=== PATIENT | female | born 1985 | race American Indian/Alaskan Native ===

== ENCOUNTER 2021-06-04 08:13 | Inpatient (IN) | payer MEDICAID, OTHER ==
[2021-06-04] MEDS ORDERED: METOCLOPRAMIDE 10 MG/2 ML INJ IV ONE (08:53)
[2021-06-04] MEDS ORDERED: LACTATED RINGERS 1,000 ML IV ONE (08:53)
--- NOTE | 2021-06-04 08:54 | Emergency Department Report ---
ED General Adult HPI - General Chief complaint: Nausea/Vomiting/Diarrhea Stated complaint: SOB PUI?: No Time Seen by Provider: 06/04/21 08:18 Source: patient, EMS ( EMS documentation not available at time of chart dictati on ), RN notes reviewed Mode of arrival: Stretcher Limitations: No Limitations - History of Present Illness Initial comments: During the history and physical examination, I am chaperoned by nurse Swati Felix The patient is a 35-year-old female. She is not known to myself previously. She is brought to the hospital by emergency medical services with a complaint of weakness, nausea, and heavy breathing. The patient is a diabetic. She believes that she takes insulin. She complains of painless generalized weakness, heavy breathing, and nausea. The patient states that she is not . As per collateral information and report from EMS, the patient consumed quite a bit of alcohol over the weekend. The patient was also out in the extreme heat. The patient denies headache, neck pain, chest pain, abdominal pain. She denies travel, surgery, immobilization, DVT and pulmonary embolism risk factors. She does not recall all the medicines that she takes. She denies dysuria. -: Gradual, days(s) Consistency: constant Improves with: rest Worsens with: movement - Related Data Allergies Allergy/AdvReac Type Severity Reaction Status Date / Time No Known Allergies Allergy Unverified 06/04/21 08:17 ED Review of Systems ROS: Stated complaint: SOB Other details as noted in HPI Constitutional: malaise, weakness. denies: fever Eyes: denies: vision change ENT: denies: epistaxis Respiratory: shortness of breath Cardiovascular: denies: chest pain Gastrointestinal: nausea. denies: abdominal pain Genitourinary: denies: dysuria Neurological: weakness Hematological/Lymphatic: denies: easy bleeding ED Past Medical Hx - Past Medical History Previous Medical History?: Yes Hx Diabetes: Yes - Social History Smoking Status: Current Every Day Smoker ED Physical Exam - General Limitations: No Limitations General appearance: alert, anxious - Head Head exam: Present: atraumatic, normocephalic - Eye Eye exam: Present: normal appearance, EOMI. Absent: nystagmus - ENT ENT exam: Present: normal exam, mucous membranes dry, normal external ear exam - Neck Neck exam: Present: normal inspection, full ROM. Absent: tenderness, meningismus - Respiratory Respiratory exam: Present: normal lung sounds bilaterally, accessory muscle use. Absent: respiratory distress, wheezes, rales, rhonchi, stridor - Cardiovascular Cardiovascular Exam: Present: normal rhythm, tachycardia, normal heart sounds. Absent: bradycardia, irregular rhythm, systolic murmur, diastolic murmur, rubs, gallop - GI/Abdominal GI/Abdominal exam: Present: soft. Absent: distended, tenderness, guarding, rebound, rigid, pulsatile mass - Extremities Exam Extremities exam: Present: normal inspection, full ROM, other (2+ pulses noted in the bilateral upper and lower extremities. There is no palpable cord. negative Homans sign. Muscular compartments are soft. The pelvis is stable.). Absent: pedal edema, calf tenderness - Back Exam Back exam: Present: normal inspection, full ROM. Absent: tenderness, CVA tenderness (R), CVA tenderness (L), paraspinal tenderness, vertebral tenderness - Neurological Exam Neurological exam: Present: alert, oriented X3, other (No facial droop. Tongue midline. Extraocular movements intact bilaterally. Facial sensation intact to light touch in V1, V2, V3 distribution bilaterally. 5 and a 5 strength in 4 extremities. Sensation intact to light touch in 4 extremities.). Absent: motor sensory deficit - Psychiatric Psychiatric exam: Present: anxious - Skin Skin exam: Present: warm, dry, intact, normal color. Absent: rash ED Course Vital Signs 06/04/21 06/04/21 06/04/21 08:18 08:43 08:45 Temperature 97.7 F Pulse Rate 113 H Respiratory 16 Rate Blood Pressure Blood Pressure 149/94 [Right] O2 Sat by Pulse 92 92 Oximetry 06/04/21 06/04/21 06/04/21 09:00 09:15 09:31 Temperature Pulse Rate 113 H 111 H Respiratory 25 H 21 Rate Blood Pressure 124/82 124/82 Blood Pressure [Right] O2 Sat by Pulse 88 100 100 Oximetry 06/04/21 06/04/21 06/04/21 09:45 10:01 10:05 Temperature 97.7 F Pulse Rate 112 H 106 H 106 H Respiratory 21 22 22 Rate Blood Pressure 124/82 124/82 Blood Pressure 149/94 [Right] O2 Sat by Pulse 100 100 100 Oximetry 06/04/21 06/04/21 10:06 10:15 Temperature Pulse Rate 111 H Respiratory 22 21 Rate Blood Pressure 124/82 Blood Pressure [Right] O2 Sat by Pulse 100 Oximetry - Reevaluation(s) Reevaluation #1: 06/04/21 09:59 Differential diagnosis, including but not limited to: Dehydration, metabolic acidosis, hyperglycemia, diabetic ketoacidosis, hyperosmolar state, electrolyte derangement Assessment and plan: 35-year-old female, with a nonfocal neurologic examination, who is clinically sober at this time, with a complaint of malaise, weakness, shortness of breath, up-to-date with Covid vaccination status, who reportedly consumed quite a bit of alcohol this weekend, and was out in the hot sun. Place patient on cardiac monitor technician, obtain appropriate laboratory studies, EKG, start IV fluids, initiate supportive care, and reassess. Have also requested that nursing team reconcile home medications. Patient reports that she got her COVID-19 vaccination. Reevaluation #2: 06/04/21 11:42 Laboratory studies demonstrate evidence of hemoconcentration, dehydration, metabolic acidosis, hyperglycemia, bicarbonate of 4, anion gap of 39, pseudo hyperkalemia likely secondary to transcellular shift. Continue IV fluids. Start insulin therapy. Admit to the critical care unit. Hospital physician, Dr. Benson, to admit patient to the critical care unit. Have reached out to our critical care physician, awaiting callback. Have contacted the lab, requested expedient results for CBC. Reevaluation #3: 06/04/21 12:04 Dr. Benson to admit to the general medical service. Leukocytosis is likely a stress reaction. - Consultations Consultation #1: 06/04/21 11:45 Dr Westbrook of critical care to follow in consultation and agrees with plan of care ED Medical Decision Making - Lab Data Result diagrams: 06/04/21 10:29 06/04/21 10:29 Vital Signs 06/04/21 08:18 Temperature 97.7 F Pulse Rate 113 H Respiratory 16 Rate Blood Pressure 149/94 [Right] Lab Results 06/04/21 06/04/21 06/04/21 Range/Units 10:29 10:29 10:29 PT 14.9 (12.2-14.9) Sec. INR 1.12 (0.87-1.13) VBG pH (7.320-7.420) Sodium 132 L (137-145) mmol/L Potassium 5.7 H (3.6-5.0) mmol/L Chloride 94.3 L (98-107) mmol/L Carbon Dioxide 4 L* (22-30) mmol/L Anion Gap 39 mmol/L BUN 17 (7-17) mg/dL Creatinine 1.1 (0.6-1.2) mg/dL Estimated GFR > 60 ml/min BUN/Creatinine Ratio 15 % Glucose 410 H (65-100) mg/dL Calcium 10.1 (8.4-10.2) mg/dL Magnesium 2.50 H (1.7-2.3) mg/dL Total Bilirubin 0.40 (0.1-1.2) mg/dL AST 36 (5-40) units/L ALT 28 (7-56) units/L Alkaline Phosphatase 116 (35-129) units/L Total Creatine Kinase 788 H (30-135) units/L Total Protein 9.1 H (6.3-8.2) g/dL Albumin 5.2 H (3.9-5) g/dL Albumin/Globulin Ratio 1.3 % TSH 1.620 (0.270-4.200) mlU/mL HCG, Quant (0-4) mIU/mL Urine Color (Yellow) Urine Turbidity (Clear) Urine pH (5.0-7.0) Ur Specific [place] (1.003-1.030) Urine Protein (Negative) mg/dL Urine Glucose (UA) (Negative) mg/dL Urine Ketones (Negative) mg/dL Urine Blood (Negative) Urine Nitrite (Negative) Urine Bilirubin (Negative) Urine Urobilinogen (<2.0) mg/dL Ur Leukocyte Esterase (Negative) Urine WBC (Auto) (0.0-6.0) /HPF Urine RBC (Auto) (0.0-6.0) /HPF U Epithel Cells (Auto) (0-13.0) /HPF Urine Bacteria (Auto) (Negative) /HPF Urine Mucus /HPF Urine Opiates Screen Urine Methadone Screen Ur Barbiturates Screen Ur Phencyclidine Scrn Ur Amphetamines Screen U Benzodiazepines Scrn Urine Cocaine Screen U Marijuana (THC) Screen Drugs of Abuse Note Plasma/Serum Alcohol (0-0.07) % 06/04/21 06/04/21 06/04/21 Range/Units 10:29 10:29 10:29 PT (12.2-14.9) Sec. INR (0.87-1.13) VBG pH 6.955 L* (7.320-7.420) Sodium (137-145) mmol/L Potassium (3.6-5.0) mmol/L Chloride (98-107) mmol/L Carbon Dioxide (22-30) mmol/L Anion Gap mmol/L BUN (7-17) mg/dL Creatinine (0.6-1.2) mg/dL Estimated GFR ml/min BUN/Creatinine Ratio % Glucose (65-100) mg/dL Calcium (8.4-10.2) mg/dL Magnesium (1.7-2.3) mg/dL Total Bilirubin (0.1-1.2) mg/dL AST (5-40) units/L ALT (7-56) units/L Alkaline Phosphatase (35-129) units/L Total Creatine Kinase (30-135) units/L Total Protein (6.3-8.2) g/dL Albumin (3.9-5) g/dL Albumin/Globulin Ratio % TSH (0.270-4.200) mlU/mL HCG, Quant < 2 (0-4) mIU/mL Urine Color (Yellow) Urine Turbidity (Clear) Urine pH (5.0-7.0) Ur Specific [place] (1.003-1.030) Urine Protein (Negative) mg/dL Urine Glucose (UA) (Negative) mg/dL Urine Ketones (Negative) mg/dL Urine Blood (Negative) Urine Nitrite (Negative) Urine Bilirubin (Negative) Urine Urobilinogen (<2.0) mg/dL Ur Leukocyte Esterase (Negative) Urine WBC (Auto) (0.0-6.0) /HPF Urine RBC (Auto) (0.0-6.0) /HPF U Epithel Cells (Auto) (0-13.0) /HPF Urine Bacteria (Auto) (Negative) /HPF Urine Mucus /HPF Urine Opiates Screen Urine Methadone Screen Ur Barbiturates Screen Ur Phencyclidine Scrn Ur Amphetamines Screen U Benzodiazepines Scrn Urine Cocaine Screen U Marijuana (THC) Screen Drugs of Abuse Note Plasma/Serum Alcohol < 0.01 (0-0.07) % 06/04/21 06/04/21 Range/Units Unknown Unknown PT (12.2-14.9) Sec. INR (0.87-1.13) VBG pH (7.320-7.420) Sodium (137-145) mmol/L Potassium (3.6-5.0) mmol/L Chloride (98-107) mmol/L Carbon Dioxide (22-30) mmol/L Anion Gap mmol/L BUN (7-17) mg/dL Creatinine (0.6-1.2) mg/dL Estimated GFR ml/min BUN/Creatinine Ratio % Glucose (65-100) mg/dL Calcium (8.4-10.2) mg/dL Magnesium (1.7-2.3) mg/dL Total Bilirubin (0.1-1.2) mg/dL AST (5-40) units/L ALT (7-56) units/L Alkaline Phosphatase (35-129) units/L Total Creatine Kinase (30-135) units/L Total Protein (6.3-8.2) g/dL Albumin (3.9-5) g/dL Albumin/Globulin Ratio % TSH (0.270-4.200) mlU/mL HCG, Quant (0-4) mIU/mL Urine Color Straw (Yellow) Urine Turbidity Clear (Clear) Urine pH 5.0 (5.0-7.0) Ur Specific [place] 1.015 (1.003-1.030) Urine Protein 100 mg/dl (Negative) mg/dL Urine Glucose (UA) >=500 (Negative) mg/dL Urine Ketones 80 (Negative) mg/dL Urine Blood Mod (Negative) Urine Nitrite Neg (Negative) Urine Bilirubin Neg (Negative) Urine Urobilinogen < 2.0 (<2.0) mg/dL Ur Leukocyte Esterase Neg (Negative) Urine WBC (Auto) < 1.0 (0.0-6.0) /HPF Urine RBC (Auto) 1.0 (0.0-6.0) /HPF U Epithel Cells (Auto) 4.0 (0-13.0) /HPF Urine Bacteria (Auto) 1+ (Negative) /HPF Urine Mucus Few /HPF Urine Opiates Screen Negative Urine Methadone Screen Negative Ur Barbiturates Screen Negative Ur Phencyclidine Scrn Negative Ur Amphetamines Screen Negative U Benzodiazepines Scrn Negative Urine Cocaine Screen Negative U Marijuana (THC) Screen Negative Drugs of Abuse Note Disclamer Plasma/Serum Alcohol (0-0.07) % Lab Results 06/04/21 06/04/21 06/04/21 Range/Units 10:29 10:29 10:29 PT 14.9 (12.2-14.9) Sec. INR 1.12 (0.87-1.13) VBG pH (7.320-7.420) Sodium 132 L (137-145) mmol/L Potassium 5.7 H (3.6-5.0) mmol/L Chloride 94.3 L (98-107) mmol/L Carbon Dioxide 4 L* (22-30) mmol/L Anion Gap 39 mmol/L BUN 17 (7-17) mg/dL Creatinine 1.1 (0.6-1.2) mg/dL Estimated GFR > 60 ml/min BUN/Creatinine Ratio 15 % Glucose 410 H (65-100) mg/dL Calcium 10.1 (8.4-10.2) mg/dL Magnesium 2.50 H (1.7-2.3) mg/dL Total Bilirubin 0.40 (0.1-1.2) mg/dL AST 36 (5-40) units/L ALT 28 (7-56) units/L Alkaline Phosphatase 116 (35-129) units/L Total Creatine Kinase 788 H (30-135) units/L Total Protein 9.1 H (6.3-8.2) g/dL Albumin 5.2 H (3.9-5) g/dL Albumin/Globulin Ratio 1.3 % TSH 1.620 (0.270-4.200) mlU/mL HCG, Quant (0-4) mIU/mL Urine Color (Yellow) Urine Turbidity (Clear) Urine pH (5.0-7.0) Ur Specific [place] (1.003-1.030) Urine Protein (Negative) mg/dL Urine Glucose (UA) (Negative) mg/dL Urine Ketones (Negative) mg/dL Urine Blood (Negative) Urine Nitrite (Negative) Urine Bilirubin (Negative) Urine Urobilinogen (<2.0) mg/dL Ur Leukocyte Esterase (Negative) Urine WBC (Auto) (0.0-6.0) /HPF Urine RBC (Auto) (0.0-6.0) /HPF U Epithel Cells (Auto) (0-13.0) /HPF Urine Bacteria (Auto) (Negative) /HPF Urine Mucus /HPF Urine Opiates Screen Urine Methadone Screen Ur Barbiturates Screen Ur Phencyclidine Scrn Ur Amphetamines Screen U Benzodiazepines Scrn Urine Cocaine Screen U Marijuana (THC) Screen Drugs of Abuse Note Plasma/Serum Alcohol (0-0.07) % 06/04/21 06/04/21 06/04/21 Range/Units 10:29 10:29 10:29 PT (12.2-14.9) Sec. INR (0.87-1.13) VBG pH 6.955 L* (7.320-7.420) Sodium (137-145) mmol/L Potassium (3.6-5.0) mmol/L Chloride (98-107) mmol/L Carbon Dioxide (22-30) mmol/L Anion Gap mmol/L BUN (7-17) mg/dL Creatinine (0.6-1.2) mg/dL Estimated GFR ml/min BUN/Creatinine Ratio % Glucose (65-100) mg/dL Calcium (8.4-10.2) mg/dL Magnesium (1.7-2.3) mg/dL Total Bilirubin (0.1-1.2) mg/dL AST (5-40) units/L ALT (7-56) units/L Alkaline Phosphatase (35-129) units/L Total Creatine Kinase (30-135) units/L Total Protein (6.3-8.2) g/dL Albumin (3.9-5) g/dL Albumin/Globulin Ratio % TSH (0.270-4.200) mlU/mL HCG, Quant < 2 (0-4) mIU/mL Urine Color (Yellow) Urine Turbidity (Clear) Urine pH (5.0-7.0) Ur Specific [place] (1.003-1.030) Urine Protein (Negative) mg/dL Urine Glucose (UA) (Negative) mg/dL Urine Ketones (Negative) mg/dL Urine Blood (Negative) Urine Nitrite (Negative) Urine Bilirubin (Negative) Urine Urobilinogen (<2.0) mg/dL Ur Leukocyte Esterase (Negative) Urine WBC (Auto) (0.0-6.0) /HPF Urine RBC (Auto) (0.0-6.0) /HPF U Epithel Cells (Auto) (0-13.0) /HPF Urine Bacteria (Auto) (Negative) /HPF Urine Mucus /HPF Urine Opiates Screen Urine Methadone Screen Ur Barbiturates Screen Ur Phencyclidine Scrn Ur Amphetamines Screen U Benzodiazepines Scrn Urine Cocaine Screen U Marijuana (THC) Screen Drugs of Abuse Note Plasma/Serum Alcohol < 0.01 (0-0.07) % 06/04/21 06/04/21 Range/Units Unknown Unknown PT (12.2-14.9) Sec. INR (0.87-1.13) VBG pH (7.320-7.420) Sodium (137-145) mmol/L Potassium (3.6-5.0) mmol/L Chloride (98-107) mmol/L Carbon Dioxide (22-30) mmol/L Anion Gap mmol/L BUN (7-17) mg/dL Creatinine (0.6-1.2) mg/dL Estimated GFR ml/min BUN/Creatinine Ratio % Glucose (65-100) mg/dL Calcium (8.4-10.2) mg/dL Magnesium (1.7-2.3) mg/dL Total Bilirubin (0.1-1.2) mg/dL AST (5-40) units/L ALT (7-56) units/L Alkaline Phosphatase (35-129) units/L Total Creatine Kinase (30-135) units/L Total Protein (6.3-8.2) g/dL Albumin (3.9-5) g/dL Albumin/Globulin Ratio % TSH (0.270-4.200) mlU/mL HCG, Quant (0-4) mIU/mL Urine Color Straw (Yellow) Urine Turbidity Clear (Clear) Urine pH 5.0 (5.0-7.0) Ur Specific [place] 1.015 (1.003-1.030) Urine Protein 100 mg/dl (Negative) mg/dL Urine Glucose (UA) >=500 (Negative) mg/dL Urine Ketones 80 (Negative) mg/dL Urine Blood Mod (Negative) Urine Nitrite Neg (Negative) Urine Bilirubin Neg (Negative) Urine Urobilinogen < 2.0 (<2.0) mg/dL Ur Leukocyte Esterase Neg (Negative) Urine WBC (Auto) < 1.0 (0.0-6.0) /HPF Urine RBC (Auto) 1.0 (0.0-6.0) /HPF U Epithel Cells (Auto) 4.0 (0-13.0) /HPF Urine Bacteria (Auto) 1+ (Negative) /HPF Urine Mucus Few /HPF Urine Opiates Screen Negative Urine Methadone Screen Negative Ur Barbiturates Screen Negative Ur Phencyclidine Scrn Negative Ur Amphetamines Screen Negative U Benzodiazepines Scrn Negative Urine Cocaine Screen Negative U Marijuana (THC) Screen Negative Drugs of Abuse Note Disclamer Plasma/Serum Alcohol (0-0.07) % Vital Signs 06/04/21 06/04/21 06/04/21 08:18 08:43 08:45 Temperature 97.7 F Pulse Rate 113 H Respiratory 16 Rate Blood Pressure Blood Pressure 149/94 [Right] O2 Sat by Pulse 92 92 Oximetry 06/04/21 06/04/21 06/04/21 09:00 09:15 09:31 Temperature Pulse Rate 113 H 111 H Respiratory 25 H 21 Rate Blood Pressure 124/82 124/82 Blood Pressure [Right] O2 Sat by Pulse 88 100 100 Oximetry 06/04/21 06/04/21 06/04/21 09:45 10:01 10:05 Temperature 97.7 F Pulse Rate 112 H 106 H 106 H Respiratory 21 22 22 Rate Blood Pressure 124/82 124/82 Blood Pressure 149/94 [Right] O2 Sat by Pulse 100 100 100 Oximetry 06/04/21 06/04/21 10:06 10:15 Temperature Pulse Rate 111 H Respiratory 22 21 Rate Blood Pressure 124/82 Blood Pressure [Right] O2 Sat by Pulse 100 Oximetry - EKG Data -: EKG Interpreted by [facility] Rate: tachycardia - EKG Data When compared to previous EKG there are: previous EKG unavailable 06/04/21 09:57 EKG interpreted at 09: 40 Sinus rhythm, tachycardia, rate 108 bpm. Normal P wave axis. Left axis deviation. High left ventricular voltage. QTC prolonged, 463 ms. This is an abnormal EKG. This is not a STEMI. - Radiology Data Radiology results: pending, report reviewed, image reviewed CHEST 2 VIEWS INDICATION / CLINICAL INFORMATION: Dyspnoea. COMPARISON: None available. FINDINGS: SUPPORT DEVICES: None. HEART / MEDIASTINUM: No significant abnormality. LUNGS / PLEURA: No significant pulmonary or pleural abnormality. No pneumothorax. ADDITIONAL FINDINGS: No significant additional findings. IMPRESSION: 1. No acute findings. Signer Name: Tyrone Smith MD Signed: 06/04/2021 7:49 AM Workstation Name: [id number] Critical Care Time: Yes Critical care time in (mins) excluding proc time.: 35 Critical care attestation.: If time is entered above; I have spent that time in minutes in the direct care of this critically ill patient, excluding procedure time. ED Disposition Clinical Impression: Diabetic ketoacidosis, Dehydration, History of alcohol use Disposition: OP ADMIT IP TO THIS HOSP Is pt being admited?: Yes Does the pt Need Aspirin: No Condition: Serious Instructions: Diabetic Ketoacidosis (ED) Referrals: PRIMARY CARE, [Primary Care Provider] - 3-5 Days
[2021-06-04 09:45] LABS: Bacteria,Urine 1+ /HPF (Negative); Bilirubin,Urine NEG (Negative); Blood,Urine MOD (Negative); Color,Urine Straw (Yellow); Mucus,Urine FEW /HPF; Urobilinogen,Urine < 2.0 mg/dL (<2.0); WBC,Urine < 1.0 /HPF (0.0-6.0)
[2021-06-04 09:52] LABS: Amphetamine Screen,Urine Negative; Benzodiazepines Screen,Urine Negative; Cannabinoid Screen,Urine Negative; Cocaine Screen,Urine Negative; Methadone Screen,Urine Negative; Opiate Screen,Urine Negative
[2021-06-04 11:04] LABS: INR 1.12 (0.87-1.13)
[2021-06-04 11:18] LABS: Alanine Aminotransferase 28 units/L (7-56); Albumin 5.2 g/dL (3.9-5); BUN/Creatinine Ratio 15; Blood Urea Nitrogen 17 mg/dL (7-17); Calcium 10.1 mg/dL (8.4-10.2); Hemolysis Index 41
[2021-06-04] MEDS ORDERED: METOCLOPRAMIDE 10 MG/2 ML INJ ONE (11:23)
[2021-06-04] MEDS ORDERED: DEXTROSE 50% IN WATER (25GM) 50 ML SYRINGE IV PRN (11:40)
[2021-06-04 11:55] LABS: Red Blood Count 4.55 M/mm3 (3.65-5.03)
[2021-06-04 11:56] LABS: Basophils # (Auto) 0.3 K/mm3 (0.0-0.1); Basophils % (Auto) 1.3 % (0.0-1.8); Hematocrit 42.3 % (30.3-42.9); Hemoglobin 12.8 gm/dl (10.1-14.3); Lymphocytes # (Auto) 1.9 K/mm3 (1.2-5.4); Lymphocytes % (Auto) 8.5 % (13.4-35.0); Mean Corpuscular HGB Conc 30 % (30-34); Mean Corpuscular Volume 93 fl (79-97); Monocytes # (Auto) 0.5 K/mm3 (0.0-0.8); Platelet Count 203 K/mm3 (140-440); Red Cell Distribution Width 17.2 % (13.2-15.2)
[2021-06-04] MEDS ORDERED: D5W/0.45% NACL/KCL 20 MEQ 20 MEQ/1,000 ML BAG IV SCH (12:00)
[2021-06-04] MEDS: INSULIN REGULAR, HUMAN 100 UNITS in SODIUM CHLORIDE 0.9% 99 ML IV SCH (12:18)
[2021-06-04] MEDS ORDERED: SODIUM BICARB 8.4% 50 MEQ/50 ML SYRINGE IV SCH ×2 (12:42→16:42)
--- NOTE | 2021-06-04 12:42 | History and Physical Report ---
History of Present Illness Chief complaint: I feel sick History of present illness: 35 YO Female with DM, Nicotine Dependence, ETOH Dependence presents to ED for evaluation. Patient reports "I feel sick". Patient states that she has experienced generalized weakness, multiple episodes of nausea over the past 3 days with persistent symptoms over the same timeframe. Patient acknowledges alcohol ingestion over the weekend, as well as noncompliance with diabetic diet and insulin therapy. EMS was notified due to the aforementioned symptoms. Upon arrival the patient was found to be in distress and subsequently transported to [facility] for further care and evaluation of the aforementioned symptoms. The patient was seen and evaluated in the emergency department. All lab and imaging studies reviewed. The patient was found to have diabetic ketoacidosis, systemic inflammatory response syndrome, volume depletion, as well as alcohol dependence. The patient was admitted to ICU due to increased risk of worsening symptoms and initiated on DKA protocol as well as CIWA protocol. Critical care team consulted in the emergency department. Patient denies fever, chills, chest pain, palpitation, productive cough, skin rash, recent ill contacts, or known exposure to COVID-19. No prior admission for review. No medication listed at time of admission for reconciliation. Past History Past Medical History: diabetes Past Surgical History: No surgical history, Other (Reviewed) Social history: single, smoking, alcohol abuse Family history: diabetes, hypertension Medications and Allergies Allergies Allergy/AdvReac Type Severity Reaction Status Date / Time No Known Allergies Allergy Unverified 06/04/21 08:17 Active Meds: Active Medications Dextrose (Dextrose 50% In Water (25gm) 50 Ml Syringe) 0 ml IV Q30MIN PRN; Protocol PRN Reason: Hypoglycemia Insulin Human Regular 100 (units/ Sodium Chloride) 100 mls @ 1 mls/hr IV TITR LO; Protocol Last Admin: 06/04/21 12:18 Dose: 8 units/hr, 8 mls/hr Documented by: Potassium Chloride/Dextrose/Sod Cl (D5w/0.45% Nacl/Kcl 20 Meq) 20 meq in 1,000 mls @ 125 mls/hr IV DIRECT LO Sodium Chloride (Nacl 0.9% 1000 Ml) 1,000 mls @ 150 mls/hr IV DIRECT LO Sodium Chloride (Nacl 0.9% 1000 Ml) 3,000 mls @ 999 mls/hr IV BOLUS ONE Stop: 06/04/21 15:41 Sodium Bicarbonate (Sodium Bicarb 8.4% 50 Meq/50 Ml Syringe) 50 meq IV ONCE ONE Stop: 06/04/21 12:43 Sodium Chloride (Sodium Chloride 0.9% 10 Ml Flush Syringe) 10 ml IV PRN NR Stop: 06/05/21 11:59 Sodium Chloride (Sodium Chloride 0.9% 10 Ml Flush Syringe) 10 ml IV BID LO Sodium Chloride (Sodium Chloride 0.9% 10 Ml Flush Syringe) 10 ml IV PRN PRN PRN Reason: LINE FLUSH Review of Systems Constitutional: no weight loss, no weight gain, no fever, no chills Ears, nose, mouth and throat: no ear pain, no ear discharge, no tinnitis, no decreased hearing Breasts: no change in shape, no swelling, no mass Cardiovascular: no chest pain, no orthopnea, no palpitations, no rapid/irregular heart beat, no edema Respiratory: no cough, no excessive sputum Gastrointestinal: nausea, vomiting, no change in bowel habits, no hematemesis, no coffee ground emesis, no BRBPR, no melena, no hematochezia Genitourinary Female: no pelvic pain, no flank pain, no dysuria, no urinary frequency, no urgency Rectal: no pain, no incontinence, no bleeding Musculoskeletal: no neck stiffness, no neck pain, no arm numbness/tingling, no low back pain, no shooting leg pain Integumentary: no rash, no pruritis, no redness, no sores Neurological: no head injury, no transient paralysis, no weakness, no parathesias, no numbness, no tingling, no seizures, no syncope Psychiatric: no anxiety, no memory loss, no sleep disturbances, no insomnia, no change in appetite, no change in libido, no suicidal ideation Endocrine: no cold intolerance, no excessive thirst, no polyuria, no excessive sweating, no flushing Hematologic/Lymphatic: no easy bruising, no easy bleeding, no lymphadenopathy, no lymphedema Allergic/Immunologic: no allergic rhinitis, no wheezing, no persistent infections, no anaphylaxis Exam - Constitutional Vitals: Temp Pulse Resp BP Pulse Ox 97.7 F 111 H 21 124/82 100 06/04/21 10:05 06/04/21 10:15 06/04/21 10:15 06/04/21 10:15 06/04/21 10:15 General appearance: Present: mild distress - EENT Eyes: Present: PERRL ENT: hearing intact, clear oral mucosa - Neck Neck: Present: supple, normal ROM - Respiratory Respiratory effort: normal Respiratory: bilateral: CTA - Cardiovascular Heart Sounds: Present: S1 & S2. Absent: rub, click - Extremities Extremities: pulses symmetrical, No edema Peripheral Pulses: within normal limits - Abdominal General gastrointestinal: Present: soft, non-tender, non-distended, normal bowel sounds Female genitourinary: Present: normal - Integumentary Integumentary: Present: dry, clammy, decreased turgor - Musculoskeletal Musculoskeletal: gait normal, strength equal bilaterally - Psychiatric Psychiatric: appropriate mood/affect, intact judgment & insight - Neurologic Neurologic: CNII-XII intact, moves all extremities Results - Labs CBC & Chem 7: 06/04/21 10:29 06/04/21 10:29 Labs: Abnormal lab results 06/04/21 06/04/21 06/04/21 Range/Units 10:29 10:29 10:29 WBC 21.2 H (4.5-11.0) K/mm3 RDW 17.2 H (13.2-15.2) % Lymph % (Auto) 8.5 L (13.4-35.0) % Baso # (Auto) 0.3 H (0.0-0.1) K/mm3 Seg Neutrophils % 88.2 H (40.0-70.0) % Seg Neutrophils # 20.3 H (1.8-7.7) K/mm3 VBG pH 6.955 L* (7.320-7.420) Sodium 132 L (137-145) mmol/L Potassium 5.7 H (3.6-5.0) mmol/L Chloride 94.3 L (98-107) mmol/L Carbon Dioxide 4 L* (22-30) mmol/L Glucose 410 H (65-100) mg/dL Magnesium 2.50 H (1.7-2.3) mg/dL Total Creatine Kinase 788 H (30-135) units/L Total Protein 9.1 H (6.3-8.2) g/dL Albumin 5.2 H (3.9-5) g/dL Assessment and Plan - Patient Problems (1) Diabetic ketoacidosis Current Visit: Yes Status: Acute Plan to address problem: DKA protocol: IV fluid resuscitation therapy, insulin drip, serial BMP, monitor anion gap, monitor fluid balance, critical care team consulted, The high probability of a clinically significant, sudden or life threatening deterioration of the [endocrine, renal] system(s) required my full and direct attention, intervention and personal management. The aggregate critical care time was [65] minutes. This time is in addition to time spent performing reported procedures but includes the following: [x] Data Review and interpretation [x] Patient assessment and monitoring of vital signs [x] Documentation [x] Medication orders and management (2) Alcohol dependence Current Visit: Yes Status: Acute Plan to address problem: Supportive care, outpatient follow-up with Alcoholics Anonymous, CIWA protocol, banana bag, supportive care. (3) Nicotine dependence Current Visit: Yes Status: Acute Qualifiers: Nicotine product type: cigarettes Substance use status: in withdrawal Qu alified Code(s): F17.213 - Nicotine dependence, cigarettes, with withdrawal Plan to address problem: Smoking cessation counseling, supportive care, behavior change counseling, +15 minutes. (4) Noncompliance with medication regimen Current Visit: Yes Status: Acute Plan to address problem: Patient counseled regarding noncompliance with medication. Patient knowledges that she will attempt to be more compliant in the future with both insulin therapy as well as diet. (5) Volume depletion Current Visit: Yes Status: Acute Plan to address problem: BMP, IV fluid resuscitation therapy, monitor urine output every shift, monitor fluid balance, (6) Systemic inflammatory response syndrome Current Visit: Yes Status: Acute Plan to address problem: CBC, CMP, chest x-ray, empiric IV antibiotic therapy x1 dose, repeat CBC in a.m. (7) DVT prophylaxis Current Visit: Yes Status: Acute Plan to address problem: SCD to bilateral lower extremities while in bed
[2021-06-04] MEDS ORDERED: SODIUM CHLORIDE 0.9% 1000 ML 3,000 ML IV ONE (13:00)
[2021-06-04] MEDS ORDERED: INSULIN REGULAR, HUMAN 100 UNITS in SODIUM CHLORIDE 0.9% 99 ML IV SCH (13:00)
[2021-06-04] MEDS ORDERED: LORazepam 2 MG/ML VIAL IV PRN (13:49)
[2021-06-04] MEDS ORDERED: VANCOMYCIN/NS 1 GM/250 ML 1 GM/250 ML BAG IV ONE (13:55)
[2021-06-04] MEDS ORDERED: VANCOMYCIN 1,500 MG in SODIUM CHLORIDE 0.9% 500 ML 500 ML IV ONE (14:15)
[2021-06-04] MEDS ORDERED: THIAMINE 100 MG, FOLIC ACID 1 MG, MULTIPLE VITAMIN INJ, ADULT 10 ML in SODIUM CHLORIDE ... IV ONE (14:30)
--- NOTE | 2021-06-04 15:48 | Consultation ---
History of Present Illness Consult date: 06/04/21 Requesting physician: JOE MCCOY Reason for consult: other (DKA) History of present illness: PULMONARY/CCM CONSULT NOTE (Full dictation # [id number]) Please see dictated notes for full details Past History Past Medical History: diabetes Past Surgical History: No surgical history, Other (Reviewed) Social history: single, smoking, alcohol abuse Family history: diabetes, hypertension Medications and Allergies Allergies Allergy/AdvReac Type Severity Reaction Status Date / Time No Known Allergies Allergy Unverified 06/04/21 08:17 Active Meds: Active Medications Dextrose (Dextrose 50% In Water (25gm) 50 Ml Syringe) 0 ml IV Q30MIN PRN; Protocol PRN Reason: Hypoglycemia Insulin Human Regular 100 (units/ Sodium Chloride) 100 mls @ 1 mls/hr IV TITR LO; Protocol Last Titration: 06/04/21 15:25 Dose: 5 units/hr, 5 mls/hr Documented by: Potassium Chloride/Dextrose/Sod Cl (D5w/0.45% Nacl/Kcl 20 Meq) 20 meq in 1,000 mls @ 125 mls/hr IV DIRECT LO Sodium Chloride (Nacl 0.9% 1000 Ml) 1,000 mls @ 150 mls/hr IV DIRECT LO Sodium Chloride (Nacl 0.9% 1000 Ml) 3,000 mls @ 999 mls/hr IV BOLUS ONE Stop: 06/04/21 16:00 Last Admin: 06/04/21 13:37 Dose: 999 mls/hr Documented by: Thiamine HCl 100 mg/ Folic Acid 1 mg/ Multivitamins/Minerals 10 ml/ Sodium Chloride 1,011.2 mls @ 250 mls/hr IV ONCE ONE Stop: 06/04/21 18:32 Vancomycin HCl 1,500 mg/ (Sodium Chloride) 530 mls @ 333.333 mls/hr IV ONCE ONE Stop: 06/04/21 15:50 Lorazepam (Lorazepam 2 Mg/Ml Vial) 2 mg IV Q1H PRN PRN Reason: CIWA-Ar 8-15 Sodium Bicarbonate (Sodium Bicarb 8.4% 50 Meq/50 Ml Syringe) 50 meq IV ONCE LO Stop: 06/04/21 18:00 Sodium Chloride (Sodium Chloride 0.9% 10 Ml Flush Syringe) 10 ml IV PRN NR Stop: 06/05/21 11:59 Sodium Chloride (Sodium Chloride 0.9% 10 Ml Flush Syringe) 10 ml IV BID LO Last Admin: 06/04/21 13:37 Dose: 10 ml Documented by: Sodium Chloride (Sodium Chloride 0.9% 10 Ml Flush Syringe) 10 ml IV PRN PRN PRN Reason: LINE FLUSH Physical Examination Vital signs: Vital Signs Temp Pulse Resp BP 97.7 F 113 H 16 149/94 06/04/21 08:18 06/04/21 08:18 06/04/21 08:18 06/04/21 08:18 Results - Laboratory Findings CBC and BMP: 06/04/21 10:29 06/05/21 08:53 PT/INR, D-dimer PT 14.9 Sec. (12.2-14.9) 06/04/21 10:29 INR 1.12 (0.87-1.13) 06/04/21 10:29 Abnormal lab findings: Abnormal Labs 06/04/21 06/04/21 06/04/21 10:29 10:29 10:29 WBC 21.2 H RDW 17.2 H Lymph % (Auto) 8.5 L Baso # (Auto) 0.3 H Seg Neutrophils % 88.2 H Seg Neutrophils # 20.3 H VBG pH 6.955 L* Sodium 132 L Potassium 5.7 H Chloride 94.3 L Carbon Dioxide 4 L* Glucose 410 H POC Glucose Magnesium 2.50 H Total Creatine Kinase 788 H Total Protein 9.1 H Albumin 5.2 H 06/04/21 06/04/21 13:23 15:14 WBC RDW Lymph % (Auto) Baso # (Auto) Seg Neutrophils % Seg Neutrophils # VBG pH Sodium Potassium Chloride Carbon Dioxide Glucose POC Glucose 374 H 272 H Magnesium Total Creatine Kinase Total Protein Albumin
[2021-06-04 15:58] LABS: BUN/Creatinine Ratio 15; Blood Urea Nitrogen 18 mg/dL (7-17); Calcium 10.1 mg/dL (8.4-10.2); Hemolysis Index 116
[2021-06-04 18:36] LABS: BUN/Creatinine Ratio 21; Blood Urea Nitrogen 19 mg/dL (7-17); Calcium 8.7 mg/dL (8.4-10.2); Hemolysis Index 74
[2021-06-04] MEDS: SODIUM CHLORIDE 0.9% 1000 ML 1,000 ML IV SCH (20:28)
[2021-06-04 22:09] LABS: BUN/Creatinine Ratio 20; Blood Urea Nitrogen 16 mg/dL (7-17); Hemolysis Index 23
[2021-06-05 00:49] LABS: BUN/Creatinine Ratio 18; Blood Urea Nitrogen 14 mg/dL (7-17); Calcium 7.6 mg/dL (8.4-10.2); Hemolysis Index 61
[2021-06-05] MEDS ORDERED: D5W/0.45% NACL 1,000 ML IV SCH (04:00)
[2021-06-05] MEDS: SODIUM CHLORIDE 0.9% 1000 ML 1,000 ML IV SCH (04:23)
[2021-06-05 07:06] LABS: Blood Urea Nitrogen 9 mg/dL (7-17); Hemolysis Index 3
[2021-06-05 07:10] LABS: BUN/Creatinine Ratio 15
[2021-06-05 07:13] LABS: Calcium 5.5 mg/dL (8.4-10.2)
[2021-06-05] MEDS: D5W/0.45% NACL/KCL 20 MEQ 20 MEQ/1,000 ML BAG IV SCH ×2 (07:43→20:08)
[2021-06-05] MEDS: POTASSIUM CHLORIDE 10 MEQ 10 MEQ/100 ML BAG IV SCH ×10 (07:44→23:41)
[2021-06-05 09:47] LABS: Blood Urea Nitrogen 12 mg/dL (7-17); Hemolysis Index 10
[2021-06-05 10:12] LABS: BUN/Creatinine Ratio 17; Calcium 8.2 mg/dL (8.4-10.2)
--- NOTE | 2021-06-05 11:56 | Progress Note ---
Assessment and Plan DKA Severe Metabolic Acidosis EtOH Abuse Tobacco Use Disorder Medication noncompliance Leukocytosis Hyperkalemia Elevated serum CPK - transition of IV insulin per DKA protocol - better medication compliance counseled - continue alcohol withdrawal (CIWA) protocol - folow electrolytes and correct per protocol - prn supplemental oxygen to keep O2 sats > 90% - prn bronchodilators (JESUS MANUEL) with pulm hygiene per RT - continue systemic steroids with slow taper - continue inhaled corticosteroids - continue to avoid nephrotoxins, renally dose all medications - continue mobility protocols to prevent pressure ulcers - PT/OT as tolerated - Wound care per RN/WCT - continue accuchecks with glycemic control per SSI for target blood glucose < 180 mg/dL (once of DKA protocol) - Smoking cessation strongly counseled at the bedside - home oxygen evaluation at discharge - GI & VTE prophylaxis - Flu & pneumovax per protocol - Pulmonary out patient follow up for PFTs and optimization of respiratory status - continue other care per attending / other consultants - prn analgesia per pain score ... re-evaluate in am & prn Subjective Date of service: 06/05/21 Principal diagnosis: DKA; EtOH Abuse; Leukocytosis; Hyperkalemia; Elevated serum CPK Interval history: Patient is seen today for: DKA; Severe Metabolic Acidosis; EtOH Abuse; Tobacco Use Disorder; Medication noncompliance; Leukocytosis; Hyperkalemia; Elevated serum CPK Seen and examined at bedside; 24hour events reviewed; nursing and respiratory care staff consulted; no adverse overnight events reported to me; resting in bed; complains of back pain which is chronic; denies acute chest pain; N&V is resolved; afebrile Objective Vital Signs - 12hr 06/05/21 06/05/21 06/05/21 00:00 00:10 00:20 Temperature Pulse Rate 116 H 113 H 112 H Pulse Rate [ From Monitor] Respiratory 18 16 17 Rate Blood Pressure 132/83 132/83 132/83 O2 Sat by Pulse 100 100 100 Oximetry 06/05/21 06/05/21 06/05/21 00:30 00:40 00:50 Temperature Pulse Rate 109 H 109 H 105 H Pulse Rate [ From Monitor] Respiratory 16 16 18 Rate Blood Pressure 126/85 126/85 123/81 O2 Sat by Pulse 100 100 100 Oximetry 06/05/21 06/05/21 06/05/21 01:00 01:10 01:20 Temperature Pulse Rate 107 H 106 H 106 H Pulse Rate [ From Monitor] Respiratory 17 15 17 Rate Blood Pressure 132/87 132/87 129/85 O2 Sat by Pulse 100 100 100 Oximetry 06/05/21 06/05/21 06/05/21 01:30 01:40 01:50 Temperature Pulse Rate 105 H 104 H 104 H Pulse Rate [ From Monitor] Respiratory 16 16 16 Rate Blood Pressure 133/86 133/86 133/89 O2 Sat by Pulse 100 100 100 Oximetry 06/05/21 06/05/21 06/05/21 02:00 02:10 02:20 Temperature Pulse Rate 107 H 105 H 108 H Pulse Rate [ From Monitor] Respiratory 17 16 15 Rate Blood Pressure 129/88 129/88 130/89 O2 Sat by Pulse 100 100 100 Oximetry 06/05/21 06/05/21 06/05/21 02:30 02:40 02:50 Temperature Pulse Rate 107 H 103 H 100 H Pulse Rate [ From Monitor] Respiratory 17 17 15 Rate Blood Pressure 130/89 104/60 79/42 O2 Sat by Pulse 100 100 100 Oximetry 06/05/21 06/05/21 06/05/21 03:00 03:10 03:20 Temperature Pulse Rate 102 H 99 H 97 H Pulse Rate [ 102 H From Monitor] Respiratory 18 19 15 Rate Blood Pressure 104/60 104/60 127/86 O2 Sat by Pulse 100 100 100 Oximetry 06/05/21 06/05/21 06/05/21 03:30 03:40 03:50 Temperature Pulse Rate 94 H 92 H 98 H Pulse Rate [ From Monitor] Respiratory 16 14 13 Rate Blood Pressure 130/89 130/89 126/86 O2 Sat by Pulse 100 100 100 Oximetry 06/05/21 06/05/21 06/05/21 04:00 04:10 04:20 Temperature Pulse Rate 96 H 100 H 99 H Pulse Rate [ From Monitor] Respiratory 14 14 15 Rate Blood Pressure 123/88 123/88 137/87 O2 Sat by Pulse 100 100 100 Oximetry 06/05/21 06/05/21 06/05/21 04:30 04:40 04:50 Temperature Pulse Rate 100 H 101 H 104 H Pulse Rate [ From Monitor] Respiratory 14 14 14 Rate Blood Pressure 133/83 133/83 126/83 O2 Sat by Pulse 100 100 100 Oximetry 06/05/21 06/05/21 06/05/21 05:00 05:10 05:20 Temperature 99.0 F Pulse Rate 102 H 98 H 94 H Pulse Rate [ From Monitor] Respiratory 15 12 13 Rate Blood Pressure 127/85 127/85 132/88 O2 Sat by Pulse 100 100 100 Oximetry 06/05/21 06/05/21 06/05/21 05:30 05:40 05:50 Temperature Pulse Rate 100 H 102 H 97 H Pulse Rate [ From Monitor] Respiratory 15 15 14 Rate Blood Pressure 129/86 129/86 121/81 O2 Sat by Pulse 100 100 100 Oximetry 06/05/21 06/05/21 06/05/21 06:00 06:10 07:00 Temperature Pulse Rate 95 H 98 H 91 H Pulse Rate [ From Monitor] Respiratory 13 14 14 Rate Blood Pressure 128/84 128/84 118/84 O2 Sat by Pulse 100 100 100 Oximetry 06/05/21 06/05/21 06/05/21 08:00 09:00 10:00 Temperature 98.8 F Pulse Rate 94 H 92 H 89 Pulse Rate [ From Monitor] Respiratory 14 13 17 Rate Blood Pressure 128/82 128/87 134/85 O2 Sat by Pulse 100 100 100 Oximetry Constitutional: appears uncomfortable Eyes: non-icteric ENT: oropharynx dry Neck: supple, no lymphadenopathy, no JVD Effort: mildly labored Ascultation: Bilateral: clear Percussion: Bilateral: not dull Cardiovascular: regular rate and rhythm Gastrointestinal: hypoactive bowel sounds, soft, tender (mild epigastric), non- distended Integumentary: normal Extremities: no cyanosis, no edema, pulses normal, no ischemia or petechiae Neurologic: non-focal exam, pupils equal and round, CN II-XII normal, motor strength normal and Psychiatric: anxious CBC and BMP: 06/06/21 08:39 06/06/21 08:39 ABG, PT/INR, D-dimer: PT/INR, D-dimer PT 14.9 Sec. (12.2-14.9) 06/04/21 10:29 INR 1.12 (0.87-1.13) 06/04/21 10:29 Abnormal lab findings: Abnormal Labs 06/04/21 06/04/21 06/04/21 10:29 10:29 10:29 WBC 21.2 H RDW 17.2 H Lymph % (Auto) 8.5 L Baso # (Auto) 0.3 H Seg Neutrophils % 88.2 H Seg Neutrophils # 20.3 H VBG pH 6.955 L* Sodium 132 L Potassium 5.7 H Chloride 94.3 L Carbon Dioxide 4 L* BUN Glucose 410 H POC Glucose Calcium Phosphorus Magnesium 2.50 H Total Creatine Kinase 788 H Total Protein 9.1 H Albumin 5.2 H 06/04/21 06/04/21 06/04/21 13:23 15:14 15:16 WBC RDW Lymph % (Auto) Baso # (Auto) Seg Neutrophils % Seg Neutrophils # VBG pH Sodium Potassium 5.6 H Chloride Carbon Dioxide 3 L* BUN 18 H Glucose 298 H POC Glucose 374 H 272 H Calcium Phosphorus Magnesium Total Creatine Kinase Total Protein Albumin 06/04/21 06/04/21 06/04/21 17:19 17:51 18:23 WBC RDW Lymph % (Auto) Baso # (Auto) Seg Neutrophils % Seg Neutrophils # VBG pH Sodium Potassium 5.4 H Chloride Carbon Dioxide 4 L* BUN 19 H Glucose 198 H POC Glucose 173 H 157 H Calcium Phosphorus Magnesium Total Creatine Kinase Total Protein Albumin 06/04/21 06/04/21 06/04/21 19:50 21:30 21:39 WBC RDW Lymph % (Auto) Baso # (Auto) Seg Neutrophils % Seg Neutrophils # VBG pH Sodium Potassium Chloride 110.9 H Carbon Dioxide 6 L* BUN Glucose 138 H POC Glucose 143 H 121 H Calcium 8.0 L Phosphorus 2.20 L Magnesium Total Creatine Kinase Total Protein Albumin 06/04/21 06/04/21 06/05/21 22:47 23:46 00:03 WBC RDW Lymph % (Auto) Baso # (Auto) Seg Neutrophils % Seg Neutrophils # VBG pH Sodium Potassium Chloride 111.3 H Carbon Dioxide 4 L* BUN Glucose 163 H POC Glucose 143 H 172 H Calcium 7.6 L Phosphorus Magnesium Total Creatine Kinase Total Protein Albumin 06/05/21 06/05/21 06/05/21 00:48 01:47 03:18 WBC RDW Lymph % (Auto) Baso # (Auto) Seg Neutrophils % Seg Neutrophils # VBG pH Sodium Potassium Chloride Carbon Dioxide BUN Glucose POC Glucose 148 H 148 H 161 H Calcium Phosphorus Magnesium Total Creatine Kinase Total Protein Albumin 06/05/21 06/05/21 06/05/21 03:57 04:57 06:15 WBC RDW Lymph % (Auto) Baso # (Auto) Seg Neutrophils % Seg Neutrophils # VBG pH Sodium Potassium Chloride Carbon Dioxide BUN Glucose POC Glucose 137 H 139 H 155 H Calcium Phosphorus Magnesium Total Creatine Kinase Total Protein Albumin 06/05/21 06/05/21 06/05/21 06:43 07:12 08:21 WBC RDW Lymph % (Auto) Baso # (Auto) Seg Neutrophils % Seg Neutrophils # VBG pH Sodium 132 L Potassium 2.6 L* D Chloride 109.0 H Carbon Dioxide 9 L* BUN Glucose 636 H* POC Glucose 150 H 121 H Calcium 5.5 L* D Phosphorus Magnesium Total Creatine Kinase Total Protein Albumin 06/05/21 06/05/21 08:53 09:04 WBC RDW Lymph % (Auto) Baso # (Auto) Seg Neutrophils % Seg Neutrophils # VBG pH Sodium 136 L Potassium Chloride 109.0 H Carbon Dioxide 13 L BUN Glucose 144 H POC Glucose 112 H Calcium 8.2 L D Phosphorus Magnesium Total Creatine Kinase Total Protein Albumin Chest x-ray: image reviewed (no acute process) Allied health notes reviewed: nursing
[2021-06-05] MEDS ORDERED: HYDROcodone/ACETAMINOPHEN 5-325 MG TAB PO PRN (12:06)
[2021-06-05] MEDS ORDERED: ACETAMINOPHEN 325 MG TAB PO PRN (12:06)
[2021-06-05 13:37] LABS: Blood Urea Nitrogen 11 mg/dL (7-17); Calcium 8.3 mg/dL (8.4-10.2); Hemolysis Index 30
[2021-06-05 13:49] LABS: BUN/Creatinine Ratio 16
[2021-06-05] MEDS ORDERED: INSULIN GLARGINE 100 UNITS/ML SUB-Q ONE (14:00)
[2021-06-05] MEDS: INSULIN REGULAR, HUMAN 100 UNITS in SODIUM CHLORIDE 0.9% 99 ML IV SCH (14:33)
[2021-06-05 17:24] LABS: Blood Urea Nitrogen 9 mg/dL (7-17); Calcium 8.3 mg/dL (8.4-10.2); Hemolysis Index 3
[2021-06-05 17:25] LABS: BUN/Creatinine Ratio 13
--- NOTE | 2021-06-05 17:55 | Electrocardiograph Report ---
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
--- NOTE | 2021-06-05 19:21 | Progress Note ---
Assessment and Plan Assessment and Plan - Patient Problems (1) Diabetic ketoacidosis Current Visit: Yes Status: Acute Plan to address problem: DKA protocol: IV fluid resuscitation therapy, insulin drip, serial BMP, monitor anion gap, monitor fluid balance, critical care team consulted, Bicarb improved only from 9 to 12 Anion gap improved from 26-18 Continue IV insulin Transfer to floor tomorrow if improved Patient started on Novolin 70/30 twice a day (2) Alcohol dependence Current Visit: Yes Status: Acute Plan to address problem: Supportive care, outpatient follow-up with Alcoholics Anonymous, CIWA protocol, banana bag, supportive care. (3) Nicotine dependence Current Visit: Yes Status: Acute Qualifiers: Nicotine product type: cigarettes Substance use status: in withdrawal Qualified Code(s): F17.213 - Nicotine dependence, cigarettes, with withdrawal Plan to address problem: Smoking cessation counseling, supportive care, behavior change counseling, +15 minutes. (4) Noncompliance with medication regimen Current Visit: Yes Status: Acute Plan to address problem: Patient counseled regarding noncompliance with medication. Patient knowledges that she will attempt to be more compliant in the future with both insulin therapy as well as diet. (5) Volume depletion Current Visit: Yes Status: Acute Plan to address problem: BMP, IV fluid resuscitation therapy, monitor urine output every shift, monitor fluid balance, (6) Systemic inflammatory response syndrome Current Visit: Yes Status: Acute Plan to address problem: CBC, CMP, chest x-ray, empiric IV antibiotic therapy x1 dose, repeat CBC in a.m. (7) DVT prophylaxis Current Visit: Yes Status: Acute Plan to address problem: SCD to bilateral lower extremities while in bed Critical care statement The high probability of a clinically significant, sudden or life threatening deterioration of the [endocrine, renal] system(s) required my full and direct attention, intervention and personal management. The aggregate critical care time was [35] minutes. This time is in addition to time spent performing reported procedures but includes the following: [x] Data Review and interpretation [x] Patient assessment and monitoring of vital signs [x] Documentation [x] Medication orders and management Subjective Date of service: 06/05/21 Principal diagnosis: DKA Interval history: 35 YO Female with DM, Nicotine Dependence, ETOH Dependence presents to ED for evaluation. Patient reports "I feel sick". Patient states that she has experienced generalized weakness, multiple episodes of nausea over the past 3 days with persistent symptoms over the same timeframe. Patient acknowledges alcohol ingestion over the weekend, as well as noncompliance with diabetic diet and insulin therapy. EMS was notified due to the aforementioned symptoms. Upon arrival the patient was found to be in distress and subsequently transported to [facility] for further care and evaluation of the aforementioned symptoms. The nemo moffett was seen and evaluated in the emergency department. All lab and imaging studies reviewed. The patient was found to have diabetic ketoacidosis, systemic inflammatory response syndrome, volume depletion, as well as alcohol dependence. The patient was admitted to ICU due to increased risk of worsening symptoms and initiated on DKA protocol as well as CIWA protocol. Critical care team consulted in the emergency department. Patient denies fever, chills, chest pain, palpitation, productive cough, skin rash, recent ill contacts, or known exposure to COVID-19. No prior admission for review. No medication listed at time of admission for reconciliation. 06/05/2021 Still very nauseous Still in metabolic acidosis Objective - Constitutional Vitals: Vital Signs - 12hr 06/05/21 06/05/21 06/05/21 08:00 09:00 10:00 Temperature 98.8 F Pulse Rate 97 H 92 H 89 Respiratory 14 13 17 Rate Blood Pressure 128/82 128/87 134/85 O2 Sat by Pulse 100 100 100 Oximetry 06/05/21 06/05/21 06/05/21 11:00 12:00 13:00 Temperature Pulse Rate 96 H 100 H 106 H Respiratory 21 15 18 Rate Blood Pressure 108/67 119/75 110/61 O2 Sat by Pulse 100 100 100 Oximetry 06/05/21 06/05/21 06/05/21 14:00 15:00 16:00 Temperature 99.6 F Pulse Rate 90 98 H 98 H Respiratory 15 13 13 Rate Blood Pressure 127/84 133/86 124/77 O2 Sat by Pulse 100 100 100 Oximetry 06/05/21 16:52 Temperature Pulse Rate 100 H Respiratory Rate Blood Pressure O2 Sat by Pulse Oximetry General appearance: Present: mild distress, well-nourished - EENT Eyes: PERRL, EOM intact ENT: hearing intact, clear oral mucosa Ears: bilateral: normal - Neck Neck: supple, normal ROM - Respiratory Respiratory effort: normal Respiratory: bilateral: CTA - Breasts Breasts: normal - Cardiovascular Heart rate: 78 Rhythm: regular Heart Sounds: Present: S1 & S2. Absent: gallop, rub Extremities: pulses intact, No edema, normal color, Full ROM - Gastrointestinal General gastrointestinal: Present: soft, non-tender, non-distended, normal bowel sounds - Genitourinary Female genitourinary: normal - Integumentary Integumentary: clear, warm, dry - Musculoskeletal Musculoskeletal: 1, strength equal bilaterally - Neurologic Neurologic: moves all extremities - Psychiatric Psychiatric: memory intact, appropriate mood/affect, intact judgment & insight - Labs CBC & Chem 7: 06/04/21 10:29 06/05/21 16:32 Labs: Abnormal lab results 06/04/21 06/04/21 06/04/21 Range/Units 19:50 21:30 21:39 Sodium (137-145) mmol/L Potassium (3.6-5.0) mmol/L Chloride 110.9 H (98-107) mmol/L Carbon Dioxide 6 L* (22-30) mmol/L Glucose 138 H (65-100) mg/dL POC Glucose 143 H 121 H (70-105) mg/dL Calcium 8.0 L (8.4-10.2) mg/dL Phosphorus 2.20 L (2.5-4.5) mg/dL 06/04/21 06/04/21 06/05/21 Range/Units 22:47 23:46 00:03 Sodium (137-145) mmol/L Potassium (3.6-5.0) mmol/L Chloride 111.3 H (98-107) mmol/L Carbon Dioxide 4 L* (22-30) mmol/L Glucose 163 H (65-100) mg/dL POC Glucose 143 H 172 H (70-105) mg/dL Calcium 7.6 L (8.4-10.2) mg/dL Phosphorus (2.5-4.5) mg/dL 06/05/21 06/05/21 06/05/21 Range/Units 00:48 01:47 03:18 Sodium (137-145) mmol/L Potassium (3.6-5.0) mmol/L Chloride (98-107) mmol/L Carbon Dioxide (22-30) mmol/L Glucose (65-100) mg/dL POC Glucose 148 H 148 H 161 H (70-105) mg/dL Calcium (8.4-10.2) mg/dL Phosphorus (2.5-4.5) mg/dL 06/05/21 06/05/21 06/05/21 Range/Units 03:57 04:57 06:15 Sodium (137-145) mmol/L Potassium (3.6-5.0) mmol/L Chloride (98-107) mmol/L Carbon Dioxide (22-30) mmol/L Glucose (65-100) mg/dL POC Glucose 137 H 139 H 155 H (70-105) mg/dL Calcium (8.4-10.2) mg/dL Phosphorus (2.5-4.5) mg/dL 06/05/21 06/05/21 06/05/21 Range/Units 06:43 07:12 08:21 Sodium 132 L (137-145) mmol/L Potassium 2.6 L* D (3.6-5.0) mmol/L Chloride 109.0 H (98-107) mmol/L Carbon Dioxide 9 L* (22-30) mmol/L Glucose 636 H* (65-100) mg/dL POC Glucose 150 H 121 H (70-105) mg/dL Calcium 5.5 L* D (8.4-10.2) mg/dL Phosphorus (2.5-4.5) mg/dL 06/05/21 06/05/21 06/05/21 Range/Units 08:53 09:04 12:47 Sodium 136 L (137-145) mmol/L Potassium (3.6-5.0) mmol/L Chloride 109.0 H (98-107) mmol/L Carbon Dioxide 13 L 9 L* (22-30) mmol/L Glucose 144 H 167 H (65-100) mg/dL POC Glucose 112 H (70-105) mg/dL Calcium 8.2 L D 8.3 L (8.4-10.2) mg/dL Phosphorus (2.5-4.5) mg/dL 06/05/21 06/05/21 06/05/21 Range/Units 13:50 15:29 16:30 Sodium (137-145) mmol/L Potassium (3.6-5.0) mmol/L Chloride (98-107) mmol/L Carbon Dioxide (22-30) mmol/L Glucose (65-100) mg/dL POC Glucose 211 H 198 H 150 H (70-105) mg/dL Calcium (8.4-10.2) mg/dL Phosphorus (2.5-4.5) mg/dL 06/05/21 Range/Units 16:32 Sodium 136 L (137-145) mmol/L Potassium 3.3 L (3.6-5.0) mmol/L Chloride 109.3 H (98-107) mmol/L Carbon Dioxide 12 L (22-30) mmol/L Glucose 157 H (65-100) mg/dL POC Glucose (70-105) mg/dL Calcium 8.3 L (8.4-10.2) mg/dL Phosphorus (2.5-4.5) mg/dL
[2021-06-05] MEDS ORDERED: INSULIN GLARGINE 100 UNITS/ML SUB-Q SCH (22:00)
--- NOTE | 2021-06-06 03:46 | Consultation ---
DATE OF CONSULTATION: 06/04/2021 PULMONARY CRITICAL CARE CONSULTATION CONSULTING PHYSICIAN: ____. REASON FOR CONSULTATION: Diabetic ketoacidosis. CHIEF COMPLAINT AND HISTORY OF PRESENT ILLNESS: The patient is a now 35-year-old female with past medical history ____ significant for a diagnosis of diabetes on home insulin therapy, but also history of alcohol dependence, who presented to the Emergency Room yesterday complaining of feeling sick. She complained of multiple episodes of nausea. She had some vomiting. She mentioned that she was drinking over the weekend and was not compliant with her diabetic diet or insulin therapy. In the ER, she was found to be in diabetic ketoacidosis, also had a systemic inflammatory response syndrome, was volume depleted. She was started on a DKA protocol as well as a CIWA protocol and ICU admission was requested. She had denied recent ill contacts or known exposure to COVID-19. It is unclear if she had received vaccination. We are asked to assist with management. When I stopped by to see her, she was resting in bed, almost hunched over in bed, complaining of some abdominal pain. Again, denies hemoptysis. Denies any open wounds or sores on her body or any possible infection. Denies dysuria. This really is as much of the history of presentation as I have. PAST MEDICAL HISTORY: Diabetes, alcohol dependence, tobacco use disorder. PAST SURGICAL HISTORY: Denies. MEDICATIONS: She was on at the time I stopped by to see were reviewed. According to the medication administration record included the following: Insulin drip was going at 5 units per hour, D5 half NS with 20 mEq of sodium per liter at 125 per hour, thiamine 100 mg IV daily, vancomycin 1.5 g IV one time dose, CIWA alcohol withdrawal protocol with Ativan. ALLERGIES: No known drug allergies. DIET: Well built lady. Denies acute weight loss or gain in the preceding few weeks to months. FAMILY AND SOCIAL HISTORY: Lives in the community. She is single. She does smoke. She uses alcohol. Denies illicit drug use or abuse otherwise. FAMILY HISTORY: There is a family history of diabetes and hypertension. REVIEW OF SYSTEMS: Difficult to obtain. She is a little bit lethargic, but denies loss of consciousness. She denies any new onset seizures. She denies new onset focal weakness. Denies gross hematochezia or melena. Denies gross hematuria or dysuria. She had some polydipsia. She had nausea and vomiting. She denies again seizures. Denies heat or cold intolerance. Complete 13-system review of systems obtained. Pertinent positives and/or negatives as in the body of history above, otherwise noncontributory. PHYSICAL EXAMINATION: VITAL SIGNS: At presentation, afebrile, temperature 97.7 degrees Fahrenheit, pulse of 113, respiratory rate of 16, blood pressure 149/94, O2 sats were 92%, inspired oxygen concentration at that time was not recorded. When I stopped by to see her, O2 sats were 98% that was on room air. GENERAL: She is a well-built, middle young lady. Normocephalic and atraumatic. Resting in bed with mildly increased respiratory effort at rest. HEENT: Anicteric. No conjunctival erythema. Oropharynx was dry. Mallampati II oropharynx. NECK: No gross jugular venous distention. No thyromegaly. Grossly, there were no palpable lymph nodes in the supraclavicular or submandibular lymph node chains. LUNGS: Auscultation of both lung martinez are unremarkable. Lungs were clear bilaterally with good bilateral air movement. HEART: Sounds 1 and 2 are heard, regular rate and rhythm at the time of my evaluation without overt rubs or murmurs. ABDOMEN: Soft, full, protuberant. Bowel sounds are positive, mildly tender. No palpable hepatosplenomegaly. EXTREMITIES: Without overt digital clubbing or cyanosis, no pedal edema. Pedal pulses are 2+ bilaterally. NEUROLOGIC: Pupils are equal, round, about 4 mm, reactive to light. Extraocular muscle movements were intact. She moves all 4 extremities spontaneously. SKIN: Normal turgor mostly, a little bit decreased turgor in the lower extremities; however, without overt cellulitis or rash in the areas examined. Please see the wound care nurses' notes for full description of her skin. PSYCHIATRIC: Mood was normal. Affect was appropriate. She had intact judgment and insight. She was a little bit depressed. LABORATORY DATA: From my review as follows: Admission white cell count 21,200, hemoglobin 12.8, hematocrit 42.3, platelet count 203. No manual differential. INR within normal limits. Venous blood gas showed a pH of 6.96. Serum sodium was 132, potassium 5.7, chloride 94, bicarbonate was 4, BUN 17, creatinine 1.1, glucose 410, anion gap 36, magnesium 2.5. Liver function test within normal limits. CPK was 788. TSH within normal limits. Urine screen was negative. Urinalysis was negative for nitrites or leukocyte esterase. She was spilling glucose in her urine. Urine drug screen was presumptive negative. Alcohol level was nondetectable. ____ less than 0.001. No microbiology studies. Chest x-ray was done and has been reviewed. It is an unremarkable chest x-ray, no acute findings. ASSESSMENT: 1. Diabetic ketoacidosis. 2. History of alcohol abuse. 3. Medication noncompliance. 4. Nicotine dependence. 5. Severe metabolic acidosis. 6. Leukocytosis. 7. Hyperkalemia. 8. Elevated serum CPK. PLAN: I do agree with the DKA protocol. We will continue IV insulin therapy, volume resuscitation. I have counseled as best as I can tobacco abstinence as well as alcohol abstinence. We will continue the CIWA protocol. We will continue thiamine and folate replacement. She will be n.p.o. in the short time. Oxygen will be offered as necessary to keep sats greater than or equal to about 90%. Aspiration precautions will be maintained. She is appropriately on again alcohol withdrawal protocol. I will be starting her on GI and DVT prophylaxis. Flu and pneumonia vaccination will be addressed per protocol. Thank you very much for the consult. We will follow along and make further recommendations as picture progresses/becomes clearer. She is critically ill on life-sustaining interventions including the IV insulin therapy, at very high risk of from endocrine system decompensation. At this time was spent about 35-40 minutes of critical care time without overlap and excluding any procedural time that may be necessary. TID: [id number] RECEIPT: [id number] TIMBO/JOHN/DANISH
[2021-06-06] MEDS: D5W/0.45% NACL/KCL 20 MEQ 20 MEQ/1,000 ML BAG IV SCH (06:58)
[2021-06-06 08:59] LABS: Basophils # (Auto) 0.2 K/mm3 (0.0-0.1); Basophils % (Auto) 2.7 % (0.0-1.8); Eosinophils # (Auto) 0.1 K/mm3 (0.0-0.4); Eosinophils % (Auto) 0.9 % (0.0-4.3); Hematocrit 31.8 % (30.3-42.9); Hemoglobin 10.5 gm/dl (10.1-14.3); Lymphocytes # (Auto) 1.1 K/mm3 (1.2-5.4); Lymphocytes % (Auto) 18.2 % (13.4-35.0); Mean Corpuscular HGB Conc 33 % (30-34); Mean Corpuscular Volume 84 fl (79-97); Monocytes # (Auto) 0.5 K/mm3 (0.0-0.8); Monocytes % (Auto) 8.2 % (0.0-7.3); Platelet Count 189 K/mm3 (140-440); Red Blood Count 3.77 M/mm3 (3.65-5.03); Red Cell Distribution Width 16.2 % (13.2-15.2)
[2021-06-06 09:30] LABS: Alanine Aminotransferase 20 units/L (7-56); Albumin 3.7 g/dL (3.9-5); Blood Urea Nitrogen 7 mg/dL (7-17); Calcium 8.5 mg/dL (8.4-10.2); Hemolysis Index 9
[2021-06-06 09:54] LABS: BUN/Creatinine Ratio 14
--- NOTE | 2021-06-06 11:36 | Discharge Summary ---
Providers - Providers Date of Admission: 06/04/21 12:37 Attending physician: MECHELLE CALLAHAN MD 06/04/21 11:31 Consult to Physician [CONS] Urgent Comment: Consulting Provider: MARIE MCCARTY Physician Instructions: Reason For Exam: dka Primary care physician: ACCOUNTING OFFICER Hospitalization Reason for admission: DKA Condition: Serious Hospital course: 35 YO Female with DM, Nicotine Dependence, ETOH Dependence presents to ED for evaluation. Patient reports "I feel sick". Patient states that she has experienced generalized weakness, multiple episodes of nausea over the past 3 days with persistent symptoms over the same timeframe. Patient acknowledges alcohol ingestion over the weekend, as well as noncompliance with diabetic diet and insulin therapy. EMS was notified due to the aforementioned symptoms. Upon arrival the patient was found to be in distress and subsequently transported to [facility] for further care and evaluation of the aforementioned symptoms. The patient was seen and evaluated in the emergency department. All lab and imaging studies reviewed. The patient was found to have diabetic ketoacidosis, sys temic inflammatory response syndrome, volume depletion, as well as alcohol dependence. The patient was admitted to ICU due to increased risk of worsening symptoms and initiated on DKA protocol as well as CIWA protocol. Critical care team consulted in the emergency department. Patient denies fever, chills, chest pain, palpitation, productive cough, skin rash, recent ill contacts, or known exposure to COVID-19. No prior admission for review. No medication listed at time of admission for reconciliation. 06/05/2021 Still very nauseous Still in metabolic acidosis 06/06: Patient remains stable, No new complaints except Nausea, no vomiting, gaps almost closed, will transfer to [facility] if gaps close. Check CPK to ensure resolution of rabdomyolysis Considering prior elevated CPK. 06/07: Patient did have a mild low blood sugar this morning but corrected. She reports that she still has her insulin at home it appears that her symptoms were secondary to her EtOH dependence and use disorder have given her extensive counseling including 15 minutes counseling on need to cease alcohol use she verbalized understanding. She is to monitor her blood sugar at minimum twice a day record and follow-up with her doctor for adjustments. She is also been educated on yearly preventive measures and needs to be evaluated and possible initiation of lisinopril in future for diabetic renal disease prevention and protection. She is clinically stable for discharge (1) Diabetic ketoacidosis Current Visit: Yes Status: Acute Plan to address problem: DKA protocol: IV fluid resuscitation therapy, insulin drip, serial BMP, monitor anion gap, monitor fluid balance, critical care team consulted, Bicarb improved only from 9 to 12 Anion gap improved from 26-18 Continue IV insulin Transfer to floor tomorrow if improved Patient started on Novolin 70/30 twice a day (2) Alcohol dependence Current Visit: Yes Status: Acute Plan to address problem: Supportive care, outpatient follow-up with Alcoholics Anonymous, CIWA protocol, banana bag, supportive care. (3) Nicotine dependence Current Visit: Yes Status: Acute Qualifiers: Nicotine product type: cigarettes Substance use status: in withdrawal Qualified Code(s): F17.213 - Nicotine dependence, cigarettes, with withdrawal Plan to address problem: Smoking cessation counseling, supportive care, behavior change counseling, +15 minutes. (4) Noncompliance with medication regimen Current Visit: Yes Status: Acute Plan to address problem: Patient counseled regarding noncompliance with medication. Patient knowledges that she will attempt to be more compliant in the future with both insulin therapy as well as diet. (5) Volume depletion Current Visit: Yes Status: Acute Plan to address problem: BMP, IV fluid resuscitation therapy, monitor urine output every shift, monitor fluid balance, (6) Systemic inflammatory response syndrome Current Visit: Yes Status: Acute Plan to address problem: CBC, CMP, chest x-ray, empiric IV antibiotic therapy x1 dose, repeat CBC in a.m. (7) rhabdomyolysis Disposition: DC-01 TO HOME OR SELFCARE Final Discharge Diagnosis (Prints w/discharge instructions): DKA Time spent for discharge: 35 minutes Core Measure Documentation - Palliative Care Palliative Care/ Comfort Measures: Not Applicable - Core Measures Any of the following diagnoses?: none Exam - Physical Exam Narrative exam: VITAL SIGNS: Reviewed. GENERAL: The patient appears normally developed, Vital signs as documented. HEAD: No signs of head trauma. EYES: Pupils are equal. Extraocular motions intact. EARS: Hearing grossly intact. MOUTH: Oropharynx is normal. NECK: No adenopathy, no JVD. CHEST: Chest with clear breath sounds bilaterally. No wheezes, rales, or rhonchi. CARDIAC: Regular rate and rhythm. S1 and S2, without murmurs, gallops, or rubs. VASCULAR: No Edema. Peripheral pulses normal and equal in all extremities. ABDOMEN: Soft, non tender and non distended. No rebound or guarding, and no masses palpated. Bowel Sounds normal. MUSCULOSKELETAL: Good range of motion of all major joints. Extremities without clubbing, cyanosis or edema. NEUROLOGIC EXAM: Alert and oriented x 3 No focal sensory or strength deficits. Speech normal. Follows commands. PSYCHIATRIC: Mood normal. SKIN: detail exam as documented in skin assessment - Constitutional Vitals: Temp Pulse Resp BP Pulse Ox 98.5 F 86 14 122/84 100 06/06/21 03:56 06/06/21 10:00 06/06/21 10:00 06/06/21 10:00 06/06/21 10:00 Plan Activity: advance as tolerated, fall precautions Diet: diabetic Special Instructions: record daily weights, record daily BP diary, record blood sugar diary, other (Must quit alcohol use on a role in AA for able to self quit) Follow up with: PRIMARY CARE, [Primary Care Provider] - 3-5 Days
[2021-06-06] MEDS ORDERED: SODIUM CHLORIDE 0.9% 1000 ML 1,000 ML IV ONE (11:45)
[2021-06-06] MEDS ORDERED: SODIUM BICARB 8.4% 50 MEQ/50 ML SYRINGE IV ONE (12:00)
--- NOTE | 2021-06-06 13:10 | Progress Note ---
Assessment and Plan DKA Severe Metabolic Acidosis EtOH Abuse Tobacco Use Disorder Medication noncompliance Leukocytosis Hyperkalemia Elevated serum CPK - transition of IV insulin per DKA protocol - better medication compliance counseled - continue alcohol withdrawal (CIWA) protocol - folow electrolytes and correct per protocol - prn supplemental oxygen to keep O2 sats > 90% - prn bronchodilators (JESUS MANUEL) with pulm hygiene per RT - continue systemic steroids with slow taper - continue inhaled corticosteroids - continue to avoid nephrotoxins, renally dose all medications - continue mobility protocols to prevent pressure ulcers - PT/OT as tolerated - Wound care per RN/WCT - continue accuchecks with glycemic control per SSI for target blood glucose < 180 mg/dL (once of DKA protocol) - Smoking cessation strongly counseled at the bedside - home oxygen evaluation at discharge - GI & VTE prophylaxis - Flu & pneumovax per protocol - Pulmonary out patient follow up for PFTs and optimization of respiratory status - continue other care per attending / other consultants - prn analgesia per pain score ... re-evaluate in am & prn Subjective Date of service: 06/06/21 Principal diagnosis: DKA; EtOH Abuse; Leukocytosis; Hyperkalemia; Elevated serum CPK Interval history: Patient is seen today for: DKA; Severe Metabolic Acidosis; EtOH Abuse; Tobacco Use Disorder; Medication noncompliance; Leukocytosis; Hyperkalemia; Elevated serum CPK Seen and examined at bedside; 24hour events reviewed; nursing and respiratory care staff consulted; no adverse overnight events reported to me; resting in bed; Objective Vital Signs - 12hr 06/06/21 06/06/21 06/06/21 02:00 03:00 03:56 Temperature 98.5 F Pulse Rate 90 84 Pulse Rate [ From Monitor] Respiratory 13 13 Rate Blood Pressure 122/91 O2 Sat by Pulse 99 100 Oximetry 06/06/21 06/06/21 06/06/21 04:00 05:00 06:00 Temperature Pulse Rate 83 88 91 H Pulse Rate [ From Monitor] Respiratory 12 12 13 Rate Blood Pressure 125/85 121/79 111/75 O2 Sat by Pulse 100 100 99 Oximetry 06/06/21 06/06/21 06/06/21 07:00 08:00 09:00 Temperature Pulse Rate 91 H 84 91 H Pulse Rate [ 75 From Monitor] Respiratory 16 14 13 Rate Blood Pressure 115/79 117/78 123/82 O2 Sat by Pulse 100 100 100 Oximetry 06/06/21 06/06/21 10:00 12:00 Temperature 98.7 F Pulse Rate 86 Pulse Rate [ From Monitor] Respiratory 14 Rate Blood Pressure 122/84 O2 Sat by Pulse 100 Oximetry Constitutional: appears uncomfortable Eyes: non-icteric ENT: oropharynx dry Neck: supple, no lymphadenopathy, no JVD Effort: mildly labored Ascultation: Bilateral: clear Percussion: Bilateral: not dull Cardiovascular: regular rate and rhythm Gastrointestinal: hypoactive bowel sounds, soft, tender (mild epigastric), non- distended Integumentary: normal Extremities: no cyanosis, no edema, pulses normal, no ischemia or petechiae Neurologic: non-focal exam, pupils equal and round, CN II-XII normal, motor strength normal and Psychiatric: anxious CBC and BMP: 06/06/21 08:39 06/06/21 08:39 ABG, PT/INR, D-dimer: PT/INR, D-dimer PT 14.9 Sec. (12.2-14.9) 06/04/21 10:29 INR 1.12 (0.87-1.13) 06/04/21 10:29 Abnormal lab findings: Abnormal Labs 06/04/21 06/04/21 06/04/21 10:29 10:29 10:29 WBC 21.2 H RDW 17.2 H Lymph % (Auto) 8.5 L [place] % (Auto) Baso % (Auto) Lymph # (Auto) Baso # (Auto) 0.3 H Seg Neutrophils % 88.2 H Seg Neutrophils # 20.3 H VBG pH 6.955 L* Sodium 132 L Potassium 5.7 H Chloride 94.3 L Carbon Dioxide 4 L* BUN Creatinine Glucose 410 H POC Glucose Calcium Phosphorus Magnesium 2.50 H Total Creatine Kinase 788 H Total Protein 9.1 H Albumin 5.2 H 06/04/21 06/04/21 06/04/21 13:23 15:14 15:16 WBC RDW Lymph % (Auto) [place] % (Auto) Baso % (Auto) Lymph # (Auto) Baso # (Auto) Seg Neutrophils % Seg Neutrophils # VBG pH Sodium Potassium 5.6 H Chloride Carbon Dioxide 3 L* BUN 18 H Creatinine Glucose 298 H POC Glucose 374 H 272 H Calcium Phosphorus Magnesium Total Creatine Kinase Total Protein Albumin 06/04/21 06/04/21 06/04/21 17:19 17:51 18:23 WBC RDW Lymph % (Auto) [place] % (Auto) Baso % (Auto) Lymph # (Auto) Baso # (Auto) Seg Neutrophils % Seg Neutrophils # VBG pH Sodium Potassium 5.4 H Chloride Carbon Dioxide 4 L* BUN 19 H Creatinine Glucose 198 H POC Glucose 173 H 157 H Calcium Phosphorus Magnesium Total Creatine Kinase Total Protein Albumin 06/04/21 06/04/21 06/04/21 19:50 21:30 21:39 WBC RDW Lymph % (Auto) [place] % (Auto) Baso % (Auto) Lymph # (Auto) Baso # (Auto) Seg Neutrophils % Seg Neutrophils # VBG pH Sodium Potassium Chloride 110.9 H Carbon Dioxide 6 L* BUN Creatinine Glucose 138 H POC Glucose 143 H 121 H Calcium 8.0 L Phosphorus 2.20 L Magnesium Total Creatine Kinase Total Protein Albumin 06/04/21 06/04/21 06/05/21 22:47 23:46 00:03 WBC RDW Lymph % (Auto) [place] % (Auto) Baso % (Auto) Lymph # (Auto) Baso # (Auto) Seg Neutrophils % Seg Neutrophils # VBG pH Sodium Potassium Chloride 111.3 H Carbon Dioxide 4 L* BUN Creatinine Glucose 163 H POC Glucose 143 H 172 H Calcium 7.6 L Phosphorus Magnesium Total Creatine Kinase Total Protein Albumin 06/05/21 06/05/21 06/05/21 00:48 01:47 03:18 WBC RDW Lymph % (Auto) [place] % (Auto) Baso % (Auto) Lymph # (Auto) Baso # (Auto) Seg Neutrophils % Seg Neutrophils # VBG pH Sodium Potassium Chloride Carbon Dioxide BUN Creatinine Glucose POC Glucose 148 H 148 H 161 H Calcium Phosphorus Magnesium Total Creatine Kinase Total Protein Albumin 06/05/21 06/05/21 06/05/21 03:57 04:57 06:15 WBC RDW Lymph % (Auto) [place] % (Auto) Baso % (Auto) Lymph # (Auto) Baso # (Auto) Seg Neutrophils % Seg Neutrophils # VBG pH Sodium Potassium Chloride Carbon Dioxide BUN Creatinine Glucose POC Glucose 137 H 139 H 155 H Calcium Phosphorus Magnesium Total Creatine Kinase Total Protein Albumin 06/05/21 06/05/21 06/05/21 06:43 07:12 08:21 WBC RDW Lymph % (Auto) [place] % (Auto) Baso % (Auto) Lymph # (Auto) Baso # (Auto) Seg Neutrophils % Seg Neutrophils # VBG pH Sodium 132 L Potassium 2.6 L* D Chloride 109.0 H Carbon Dioxide 9 L* BUN Creatinine Glucose 636 H* POC Glucose 150 H 121 H Calcium 5.5 L* D Phosphorus Magnesium Total Creatine Kinase Total Protein Albumin 06/05/21 06/05/21 06/05/21 08:53 09:04 12:47 WBC RDW Lymph % (Auto) [place] % (Auto) Baso % (Auto) Lymph # (Auto) Baso # (Auto) Seg Neutrophils % Seg Neutrophils # VBG pH Sodium 136 L Potassium Chloride 109.0 H Carbon Dioxide 13 L 9 L* BUN Creatinine Glucose 144 H 167 H POC Glucose 112 H Calcium 8.2 L D 8.3 L Phosphorus Magnesium Total Creatine Kinase Total Protein Albumin 06/05/21 06/05/21 06/05/21 13:50 15:29 16:30 WBC RDW Lymph % (Auto) [place] % (Auto) Baso % (Auto) Lymph # (Auto) Baso # (Auto) Seg Neutrophils % Seg Neutrophils # VBG pH Sodium Potassium Chloride Carbon Dioxide BUN Creatinine Glucose POC Glucose 211 H 198 H 150 H Calcium Phosphorus Magnesium Total Creatine Kinase Total Protein Albumin 06/05/21 06/05/21 06/05/21 16:32 19:30 21:51 WBC RDW Lymph % (Auto) [place] % (Auto) Baso % (Auto) Lymph # (Auto) Baso # (Auto) Seg Neutrophils % Seg Neutrophils # VBG pH Sodium 136 L Potassium 3.3 L Chloride 109.3 H Carbon Dioxide 12 L BUN Creatinine Glucose 157 H POC Glucose 115 H 109 H Calcium 8.3 L Phosphorus Magnesium Total Creatine Kinase Total Protein Albumin 06/05/21 06/06/21 06/06/21 23:52 00:53 02:01 WBC RDW Lymph % (Auto) [place] % (Auto) Baso % (Auto) Lymph # (Auto) Baso # (Auto) Seg Neutrophils % Seg Neutrophils # VBG pH Sodium Potassium Chloride Carbon Dioxide BUN Creatinine Glucose POC Glucose 111 H 116 H 118 H Calcium Phosphorus Magnesium Total Creatine Kinase Total Protein Albumin 06/06/21 06/06/21 06/06/21 03:00 03:52 05:00 WBC RDW Lymph % (Auto) [place] % (Auto) Baso % (Auto) Lymph # (Auto) Baso # (Auto) Seg Neutrophils % Seg Neutrophils # VBG pH Sodium Potassium Chloride Carbon Dioxide BUN Creatinine Glucose POC Glucose 125 H 128 H 123 H Calcium Phosphorus Magnesium Total Creatine Kinase Total Protein Albumin 06/06/21 06/06/21 06/06/21 05:52 08:13 08:39 WBC RDW 16.2 H Lymph % (Auto) [place] % (Auto) 8.2 H Baso % (Auto) 2.7 H Lymph # (Auto) 1.1 L Baso # (Auto) 0.2 H Seg Neutrophils % Seg Neutrophils # VBG pH Sodium Potassium Chloride Carbon Dioxide BUN Creatinine Glucose POC Glucose 108 H 134 H Calcium Phosphorus Magnesium Total Creatine Kinase Total Protein Albumin 06/06/21 06/06/21 06/06/21 08:39 09:52 11:36 WBC RDW Lymph % (Auto) [place] % (Auto) Baso % (Auto) Lymph # (Auto) Baso # (Auto) Seg Neutrophils % Seg Neutrophils # VBG pH Sodium 136 L Potassium Chloride Carbon Dioxide 17 L BUN Creatinine 0.5 L Glucose 196 H POC Glucose 266 H 252 H Calcium Phosphorus Magnesium Total Creatine Kinase Total Protein 5.8 L D Albumin 3.7 L Allied health notes reviewed: nursing
--- NOTE | 2021-06-06 16:16 | Progress Note ---
Assessment and Plan Assessment and plan: 35 YO Female with DM, Nicotine Dependence, ETOH Dependence presents to ED for evaluation. Patient reports "I feel sick". Patient states that she has experienced generalized weakness, multiple episodes of nausea over the past 3 days with persistent symptoms over the same timeframe. Patient acknowledges alcohol ingestion over the weekend, as well as noncompliance with diabetic diet and insulin therapy. EMS was notified due to the aforementioned symptoms. Upon arrival the patient was found to be in distress and subsequently transported to [facility] for further care and evaluation of the aforementioned symptoms. The patient was seen and evaluated in the emergency department. All lab and imaging studies reviewed. The patient was found to have diabetic ketoacidosis, systemic inflammatory response syndrome, volume depletion, as well as alcohol dependence. The patient was admitted to ICU due to increased risk of worsening symptoms and initiated on DKA protocol as well as CIWA protocol. Critical care team consulted in the emergency department. Patient denies fever, chills, chest pain, palpitation, productive cough, skin rash, recent ill contacts, or known exposure to COVID-19. No prior admission for review. No medication listed at time of admission for reconciliation. 06/05/2021 Still very nauseous Still in metabolic acidosis 06/06: Patient remains stable, No new complaints except Nausea, no vomiting, gaps almost closed, will transfer to tele if gaps close. Check CPK to ensure resolut ion of rabdomyolysis Considering prior elevated CPK. (1) Diabetic ketoacidosis Current Visit: Yes Status: Acute Plan to address problem: DKA protocol: IV fluid resuscitation therapy, insulin drip, serial BMP, monitor anion gap, monitor fluid balance, critical care team consulted, Bicarb improved only from 9 to 12 Anion gap improved from 26-18 Continue IV insulin Transfer to floor tomorrow if improved Patient started on Novolin 70/30 twice a day (2) Alcohol dependence Current Visit: Yes Status: Acute Plan to address problem: Supportive care, outpatient follow-up with Alcoholics Anonymous, CIWA protocol, banana bag, supportive care. (3) Nicotine dependence Current Visit: Yes Status: Acute Qualifiers: Nicotine product type: cigarettes Substance use status: in withdrawal Qualified Code(s): F17.213 - Nicotine dependence, cigarettes, with withdrawal Plan to address problem: Smoking cessation counseling, supportive care, behavior change counseling, +15 minutes. (4) Noncompliance with medication regimen Current Visit: Yes Status: Acute Plan to address problem: Patient counseled regarding noncompliance with medication. Patient knowledges that she will attempt to be more compliant in the future with both insulin therapy as well as diet. (5) Volume depletion Current Visit: Yes Status: Acute Plan to address problem: BMP, IV fluid resuscitation therapy, monitor urine output every shift, monitor fluid balance, (6) Systemic inflammatory response syndrome Current Visit: Yes Status: Acute Plan to address problem: CBC, CMP, chest x-ray, empiric IV antibiotic therapy x1 dose, repeat CBC in a.m. (7) DVT prophylaxis Current Visit: Yes Status: Acute Plan to address problem: SCD to bilateral lower extremities while in bed Critical care statement The high probability of a clinically significant, sudden or life threatening deterioration of the [endocrine, renal] system(s) required my full and direct attention, intervention and personal management. The aggregate critical care time was [35] minutes. This time is in addition to time spent performing reported procedures but includes the following: [x] Data Review and interpretation [x] Patient assessment and monitoring of vital signs [x] Documentation [x] Medication orders and management History Interval history: Patient seen and examined, resting comfortable, States she is still nauseous Hospitalist Physical - Constitutional Vitals: Temp Pulse Resp BP Pulse Ox 98.7 F 78 14 116/84 100 06/06/21 12:00 06/06/21 15:00 06/06/21 15:00 06/06/21 15:00 06/06/21 15:00 General appearance: Present: mild distress, well-nourished - EENT Eyes: Present: PERRL, EOM intact ENT: hearing intact, clear oral mucosa - Neck Neck: Present: supple, normal ROM - Respiratory Respiratory effort: normal Respiratory: bilateral: diminished - Cardiovascular Rhythm: regular Heart Sounds: Present: S1 & S2, systolic murmur - Extremities Extremities: no ischemia, pulses intact, No edema, Full ROM Peripheral Pulses: within normal limits - Abdominal General gastrointestinal: soft, non-tender, non-distended, normal bowel sounds - Integumentary Integumentary: Present: clear, warm - Psychiatric Psychiatric: appropriate mood/affect, intact judgment & insight, memory intact, cooperative - Neurologic Neurologic: CNII-XII intact, moves all extremities - Allied Health Allied health notes reviewed: nursing Results - Labs CBC & Chem 7: 06/06/21 08:39 06/06/21 08:39 Labs: Laboratory Last Values WBC 6.0 K/mm3 (4.5-11.0) 06/06/21 08:39 RBC 3.77 M/mm3 (3.65-5.03) 06/06/21 08:39 Hgb 10.5 gm/dl (10.1-14.3) 06/06/21 08:39 Hct 31.8 % (30.3-42.9) D 06/06/21 08:39 MCV 84 fl (79-97) 06/06/21 08:39 MCH 28 pg (28-32) 06/06/21 08:39 MCHC 33 % (30-34) 06/06/21 08:39 RDW 16.2 % (13.2-15.2) H 06/06/21 08:39 Plt Count 189 K/mm3 (140-440) 06/06/21 08:39 Lymph % (Auto) 18.2 % (13.4-35.0) 06/06/21 08:39 [place] % (Auto) 8.2 % (0.0-7.3) H 06/06/21 08:39 Eos % (Auto) 0.9 % (0.0-4.3) 06/06/21 08:39 Baso % (Auto) 2.7 % (0.0-1.8) H 06/06/21 08:39 Lymph # (Auto) 1.1 K/mm3 (1.2-5.4) L 06/06/21 08:39 [place] # (Auto) 0.5 K/mm3 (0.0-0.8) 06/06/21 08:39 Eos # (Auto) 0.1 K/mm3 (0.0-0.4) 06/06/21 08:39 Baso # (Auto) 0.2 K/mm3 (0.0-0.1) H 06/06/21 08:39 Seg Neutrophils % 70.0 % (40.0-70.0) 06/06/21 08:39 Seg Neutrophils # 4.2 K/mm3 (1.8-7.7) 06/06/21 08:39 PT 14.9 Sec. (12.2-14.9) 06/04/21 10:29 INR 1.12 (0.87-1.13) 06/04/21 10:29 VBG pH 6.955 (7.320-7.420) L* 06/04/21 10:29 Sodium 136 mmol/L (137-145) L 06/06/21 08:39 Potassium 3.7 mmol/L (3.6-5.0) 06/06/21 08:39 Chloride 104.1 mmol/L (98-107) 06/06/21 08:39 Carbon Dioxide 17 mmol/L (22-30) L 06/06/21 08:39 Anion Gap 19 mmol/L 06/06/21 08:39 BUN 7 mg/dL (7-17) 06/06/21 08:39 Creatinine 0.5 mg/dL (0.6-1.2) L 06/06/21 08:39 Estimated GFR > 60 ml/min 06/06/21 08:39 BUN/Creatinine Ratio 14 % 06/06/21 08:39 Glucose 196 mg/dL (65-100) H 06/06/21 08:39 POC Glucose 252 mg/dL (70-105) H 06/06/21 11:36 Calcium 8.5 mg/dL (8.4-10.2) 06/06/21 08:39 Phosphorus 2.20 mg/dL (2.5-4.5) L 06/04/21 21:30 Magnesium 2.00 mg/dL (1.7-2.3) 06/04/21 21:30 Total Bilirubin 0.60 mg/dL (0.1-1.2) 06/06/21 08:39 AST 27 units/L (5-40) 06/06/21 08:39 ALT 20 units/L (7-56) 06/06/21 08:39 Alkaline Phosphatase 74 units/L (35-129) 06/06/21 08:39 Total Creatine Kinase 788 units/L (30-135) H 06/04/21 10:29 Total Protein 5.8 g/dL (6.3-8.2) L D 06/06/21 08:39 Albumin 3.7 g/dL (3.9-5) L 06/06/21 08:39 Albumin/Globulin Ratio 1.8 % 06/06/21 08:39 TSH 1.620 mlU/mL (0.270-4.200) 06/04/21 10:29 HCG, Quant < 2 mIU/mL (0-4) 06/04/21 10:29 Urine Color Straw (Yellow) 06/04/21 Unknown Urine Turbidity Clear (Clear) 06/04/21 Unknown Urine pH 5.0 (5.0-7.0) 06/04/21 Unknown Ur Specific [place] 1.015 (1.003-1.030) 06/04/21 Unknown Urine Protein 100 mg/dl mg/dL (Negative) 06/04/21 Unknown Urine Glucose (UA) >=500 mg/dL (Negative) 06/04/21 Unknown Urine Ketones 80 mg/dL (Negative) 06/04/21 Unknown Urine Blood Mod (Negative) 06/04/21 Unknown Urine Nitrite Neg (Negative) 06/04/21 Unknown Urine Bilirubin Neg (Negative) 06/04/21 Unknown Urine Urobilinogen < 2.0 mg/dL (<2.0) 06/04/21 Unknown Ur Leukocyte Esterase Neg (Negative) 06/04/21 Unknown Urine WBC (Auto) < 1.0 /HPF (0.0-6.0) 06/04/21 Unknown Urine RBC (Auto) 1.0 /HPF (0.0-6.0) 06/04/21 Unknown U Epithel Cells (Auto) 4.0 /HPF (0-13.0) 06/04/21 Unknown Urine Bacteria (Auto) 1+ /HPF (Negative) 06/04/21 Unknown Urine Mucus Few /HPF 06/04/21 Unknown Urine Opiates Screen Negative 06/04/21 Unknown Urine Methadone Screen Negative 06/04/21 Unknown Ur Barbiturates Screen Negative 06/04/21 Unknown Ur Phencyclidine Scrn Negative 06/04/21 Unknown Ur Amphetamines Screen Negative 06/04/21 Unknown U Benzodiazepines Scrn Negative 06/04/21 Unknown Urine Cocaine Screen Negative 06/04/21 Unknown U Marijuana (THC) Screen Negative 06/04/21 Unknown Drugs of Abuse Note Disclamer 06/04/21 Unknown Plasma/Serum Alcohol < 0.01 % (0-0.07) 06/04/21 10:29 Active Medications - Current Medications Current Medications: Generic Name Dose Route Start Last Admin Trade Name Freq PRN Reason Stop Dose Admin Acetaminophen 650 mg 06/05/21 12:06 Acetaminophen 325 Mg Tab PO Q4H PRN Pain, Mild (1-3) Hydrocodone Bitart/Acetaminophen 1 each 06/05/21 12:06 Hydrocodone/Acetaminophen 5-325 Mg Tab PO Q6H PRN Pain, Moderate (4-6) Dextrose 0 ml 06/04/21 11:40 Dextrose 50% In Water (25gm) 50 Ml Syringe IV Q30MIN PRN Hypoglycemia Protocol Insulin Human Regular 100 100 mls @ 1 mls/hr 06/04/21 12:00 06/06/21 07:01 units/ Sodium Chloride IV 0 units/hr TITR LO 0 mls/hr Titration Protocol 1 UNITS/HR Sodium Chloride 1,000 mls @ 150 mls/hr 06/04/21 13:00 06/05/21 04:23 Nacl 0.9% 1000 Ml IV 150 mls/hr DIRECT LO Administration Potassium Chloride/Dextrose/Sod Cl 20 meq in 1,000 mls @ 125 mls/hr 06/05/21 08:00 06/06/21 06:58 D5w/0.45% Nacl/Kcl 20 Meq IV 125 mls/hr DIRECT LO Administration Insulin Glargine 20 units 06/05/21 22:00 06/05/21 21:52 Insulin Glargine 100 Units/Ml SUB-Q 20 units QHS LO Administration Lorazepam 2 mg 06/04/21 13:49 Lorazepam 2 Mg/Ml Vial IV Q1H PRN CIWA-Ar 8-15 Sodium Chloride 10 ml 06/04/21 13:00 06/06/21 10:13 Sodium Chloride 0.9% 10 Ml Flush Syringe IV 10 ml BID LO Administration Sodium Chloride 10 ml 06/04/21 13:00 Sodium Chloride 0.9% 10 Ml Flush Syringe IV PRN PRN LINE FLUSH
[2021-06-06 16:34] LABS: Blood Urea Nitrogen 8 mg/dL (7-17); Hemolysis Index 9
[2021-06-06 16:37] LABS: BUN/Creatinine Ratio 13
[2021-06-06] MEDS ORDERED: DEXTROSE 50% IN WATER (25GM) 50 ML SYRINGE IV PRN (17:37)
[2021-06-06] MEDS ORDERED: INSULIN REGULAR, HUMAN 100 UNITS/1 ML SUB-Q ONE (18:36)
[2021-06-06] MEDS ORDERED: INSULIN GLARGINE 100 UNITS/ML SUB-Q SCH (22:00)
[2021-06-06] MEDS: INSULIN LISPRO 100 UNIT/ML SUB-Q SCH (22:50)
[2021-06-07 08:40] VITALS: BP 120/85
--- NOTE | 2021-06-07 08:40 | Progress Note ---
Assessment and Plan DKA Severe Metabolic Acidosis EtOH Abuse Tobacco Use Disorder Medication noncompliance Leukocytosis Hyperkalemia Elevated serum CPK - better medication compliance counseled - alcohol abuse counseling - follow electrolytes and correct per protocol - prn supplemental oxygen to keep O2 sats > 90% - prn bronchodilators (JESUS MANUEL) with pulm hygiene per RT - continue to avoid nephrotoxins, renally dose all medications - increase activity - continue accuchecks with glycemic control per SSI for target blood glucose < 180 mg/dL (once of DKA protocol) - Smoking cessation strongly counseled at the bedside - VTE prophylaxis - Influenza and pneumonia vaccination per protocol - continue other care per attending / other consultants - discharge planning Subjective Date of service: 06/07/21 Principal diagnosis: DKA; EtOH Abuse; Leukocytosis; Hyperkalemia; Elevated serum CPK Interval history: Patient is seen today for: DKA; Severe Metabolic Acidosis; EtOH Abuse; Tobacco Use Disorder; Medication noncompliance; Leukocytosis; Hyperkalemia; Elevated serum CPK Seen and examined at bedside; 24hour events reviewed; nursing and respiratory care staff consulted; no adverse overnight events reported to me; resting in bed; doing much better Objective Vital Signs - 12hr 06/06/21 06/06/21 06/07/21 20:47 23:30 00:00 Temperature 98.6 F Pulse Rate 79 83 Respiratory 18 18 Rate Blood Pressure 135/95 O2 Sat by Pulse 99 Oximetry 06/07/21 06/07/21 06/07/21 04:00 05:16 07:48 Temperature 98.3 F 98.6 F Pulse Rate 73 78 80 Respiratory 18 16 Rate Blood Pressure 132/99 120/85 O2 Sat by Pulse 99 97 Oximetry Constitutional: no acute distress, alert Eyes: non-icteric ENT: oropharynx dry Neck: supple, no lymphadenopathy, no JVD Effort: normal Ascultation: Bilateral: clear Percussion: Bilateral: not dull Cardiovascular: regular rate and rhythm, other (S1,S2) Gastrointestinal: normoactive bowel sounds, soft, non-tender, non-distended Integumentary: normal Extremities: no cyanosis, no edema, pulses normal, no ischemia or petechiae Neurologic: normal mental status, non-focal exam, pupils equal and round, CN II- XII normal, motor strength normal and Psychiatric: mood appropriate, affect normal CBC and BMP: 06/06/21 08:39 06/06/21 15:35 ABG, PT/INR, D-dimer: PT/INR, D-dimer PT 14.9 Sec. (12.2-14.9) 06/04/21 10:29 INR 1.12 (0.87-1.13) 06/04/21 10:29 Abnormal lab findings: Abnormal Labs 06/04/21 06/04/21 06/04/21 10:29 10:29 10:29 WBC 21.2 H RDW 17.2 H Lymph % (Auto) 8.5 L [place] % (Auto) Baso % (Auto) Lymph # (Auto) Baso # (Auto) 0.3 H Seg Neutrophils % 88.2 H Seg Neutrophils # 20.3 H VBG pH 6.955 L* Sodium 132 L Potassium 5.7 H Chloride 94.3 L Carbon Dioxide 4 L* BUN Creatinine Glucose 410 H POC Glucose Calcium Phosphorus Magnesium 2.50 H Total Creatine Kinase 788 H Total Protein 9.1 H Albumin 5.2 H 06/04/21 06/04/21 06/04/21 13:23 15:14 15:16 WBC RDW Lymph % (Auto) [place] % (Auto) Baso % (Auto) Lymph # (Auto) Baso # (Auto) Seg Neutrophils % Seg Neutrophils # VBG pH Sodium Potassium 5.6 H Chloride Carbon Dioxide 3 L* BUN 18 H Creatinine Glucose 298 H POC Glucose 374 H 272 H Calcium Phosphorus Magnesium Total Creatine Kinase Total Protein Albumin 06/04/21 06/04/21 06/04/21 17:19 17:51 18:23 WBC RDW Lymph % (Auto) [place] % (Auto) Baso % (Auto) Lymph # (Auto) Baso # (Auto) Seg Neutrophils % Seg Neutrophils # VBG pH Sodium Potassium 5.4 H Chloride Carbon Dioxide 4 L* BUN 19 H Creatinine Glucose 198 H POC Glucose 173 H 157 H Calcium Phosphorus Magnesium Total Creatine Kinase Total Protein Albumin 06/04/21 06/04/21 06/04/21 19:50 21:30 21:39 WBC RDW Lymph % (Auto) [place] % (Auto) Baso % (Auto) Lymph # (Auto) Baso # (Auto) Seg Neutrophils % Seg Neutrophils # VBG pH Sodium Potassium Chloride 110.9 H Carbon Dioxide 6 L* BUN Creatinine Glucose 138 H POC Glucose 143 H 121 H Calcium 8.0 L Phosphorus 2.20 L Magnesium Total Creatine Kinase Total Protein Albumin 06/04/21 06/04/21 06/05/21 22:47 23:46 00:03 WBC RDW Lymph % (Auto) [place] % (Auto) Baso % (Auto) Lymph # (Auto) Baso # (Auto) Seg Neutrophils % Seg Neutrophils # VBG pH Sodium Potassium Chloride 111.3 H Carbon Dioxide 4 L* BUN Creatinine Glucose 163 H POC Glucose 143 H 172 H Calcium 7.6 L Phosphorus Magnesium Total Creatine Kinase Total Protein Albumin 06/05/21 06/05/21 06/05/21 00:48 01:47 03:18 WBC RDW Lymph % (Auto) [place] % (Auto) Baso % (Auto) Lymph # (Auto) Baso # (Auto) Seg Neutrophils % Seg Neutrophils # VBG pH Sodium Potassium Chloride Carbon Dioxide BUN Creatinine Glucose POC Glucose 148 H 148 H 161 H Calcium Phosphorus Magnesium Total Creatine Kinase Total Protein Albumin 06/05/21 06/05/21 06/05/21 03:57 04:57 06:15 WBC RDW Lymph % (Auto) [place] % (Auto) Baso % (Auto) Lymph # (Auto) Baso # (Auto) Seg Neutrophils % Seg Neutrophils # VBG pH Sodium Potassium Chloride Carbon Dioxide BUN Creatinine Glucose POC Glucose 137 H 139 H 155 H Calcium Phosphorus Magnesium Total Creatine Kinase Total Protein Albumin 06/05/21 06/05/21 06/05/21 06:43 07:12 08:21 WBC RDW Lymph % (Auto) [place] % (Auto) Baso % (Auto) Lymph # (Auto) Baso # (Auto) Seg Neutrophils % Seg Neutrophils # VBG pH Sodium 132 L Potassium 2.6 L* D Chloride 109.0 H Carbon Dioxide 9 L* BUN Creatinine Glucose 636 H* POC Glucose 150 H 121 H Calcium 5.5 L* D Phosphorus Magnesium Total Creatine Kinase Total Protein Albumin 06/05/21 06/05/21 06/05/21 08:53 09:04 12:47 WBC RDW Lymph % (Auto) [place] % (Auto) Baso % (Auto) Lymph # (Auto) Baso # (Auto) Seg Neutrophils % Seg Neutrophils # VBG pH Sodium 136 L Potassium Chloride 109.0 H Carbon Dioxide 13 L 9 L* BUN Creatinine Glucose 144 H 167 H POC Glucose 112 H Calcium 8.2 L D 8.3 L Phosphorus Magnesium Total Creatine Kinase Total Protein Albumin 06/05/21 06/05/21 06/05/21 13:50 15:29 16:30 WBC RDW Lymph % (Auto) [place] % (Auto) Baso % (Auto) Lymph # (Auto) Baso # (Auto) Seg Neutrophils % Seg Neutrophils # VBG pH Sodium Potassium Chloride Carbon Dioxide BUN Creatinine Glucose POC Glucose 211 H 198 H 150 H Calcium Phosphorus Magnesium Total Creatine Kinase Total Protein Albumin 06/05/21 06/05/21 06/05/21 16:32 19:30 21:51 WBC RDW Lymph % (Auto) [place] % (Auto) Baso % (Auto) Lymph # (Auto) Baso # (Auto) Seg Neutrophils % Seg Neutrophils # VBG pH Sodium 136 L Potassium 3.3 L Chloride 109.3 H Carbon Dioxide 12 L BUN Creatinine Glucose 157 H POC Glucose 115 H 109 H Calcium 8.3 L Phosphorus Magnesium Total Creatine Kinase Total Protein Albumin 06/05/21 06/06/21 06/06/21 23:52 00:53 02:01 WBC RDW Lymph % (Auto) [place] % (Auto) Baso % (Auto) Lymph # (Auto) Baso # (Auto) Seg Neutrophils % Seg Neutrophils # VBG pH Sodium Potassium Chloride Carbon Dioxide BUN Creatinine Glucose POC Glucose 111 H 116 H 118 H Calcium Phosphorus Magnesium Total Creatine Kinase Total Protein Albumin 06/06/21 06/06/21 06/06/21 03:00 03:52 05:00 WBC RDW Lymph % (Auto) [place] % (Auto) Baso % (Auto) Lymph # (Auto) Baso # (Auto) Seg Neutrophils % Seg Neutrophils # VBG pH Sodium Potassium Chloride Carbon Dioxide BUN Creatinine Glucose POC Glucose 125 H 128 H 123 H Calcium Phosphorus Magnesium Total Creatine Kinase Total Protein Albumin 06/06/21 06/06/21 06/06/21 05:52 08:13 08:39 WBC RDW 16.2 H Lymph % (Auto) [place] % (Auto) 8.2 H Baso % (Auto) 2.7 H Lymph # (Auto) 1.1 L Baso # (Auto) 0.2 H Seg Neutrophils % Seg Neutrophils # VBG pH Sodium Potassium Chloride Carbon Dioxide BUN Creatinine Glucose POC Glucose 108 H 134 H Calcium Phosphorus Magnesium Total Creatine Kinase Total Protein Albumin 06/06/21 06/06/21 06/06/21 08:39 09:52 11:36 WBC RDW Lymph % (Auto) [place] % (Auto) Baso % (Auto) Lymph # (Auto) Baso # (Auto) Seg Neutrophils % Seg Neutrophils # VBG pH Sodium 136 L Potassium Chloride Carbon Dioxide 17 L BUN Creatinine 0.5 L Glucose 196 H POC Glucose 266 H 252 H Calcium Phosphorus Magnesium Total Creatine Kinase Total Protein 5.8 L D Albumin 3.7 L 06/06/21 06/06/21 06/06/21 15:35 16:08 16:22 WBC RDW Lymph % (Auto) [place] % (Auto) Baso % (Auto) Lymph # (Auto) Baso # (Auto) Seg Neutrophils % Seg Neutrophils # VBG pH Sodium 132 L Potassium Chloride Carbon Dioxide 19 L BUN Creatinine Glucose 353 H POC Glucose 394 H Calcium 8.0 L Phosphorus Magnesium Total Creatine Kinase 307 H Total Protein Albumin 06/06/21 06/07/21 21:31 07:46 WBC RDW Lymph % (Auto) [place] % (Auto) Baso % (Auto) Lymph # (Auto) Baso # (Auto) Seg Neutrophils % Seg Neutrophils # VBG pH Sodium Potassium Chloride Carbon Dioxide BUN Creatinine Glucose POC Glucose 192 H 67 L Calcium Phosphorus Magnesium Total Creatine Kinase Total Protein Albumin Allied health notes reviewed: nursing
[2021-06-07] MEDS: INSULIN LISPRO 100 UNIT/ML SUB-Q SCH ×2 (08:45→13:06)
== END 2021-06-07 13:30 | disposition home or self-care (01) | DRG 638 ==
LOC: ED 08:13 → CC1 12:37 → 4A 06-06 19:27
PROVIDERS: ADMIT Internal Medicine; ATTEND Internal Medicine
DX: E11.10 Type 2 diabetes mellitus with ketoacidosis without coma (principal); R65.10 Systemic inflammatory response syndrome (SIRS) of non-infectious origin without acute organ dysfunction; F17.213 Nicotine dependence, cigarettes, with withdrawal; M62.82 Rhabdomyolysis; E87.5 Hyperkalemia; E86.0 Dehydration; E86.9 Volume depletion, unspecified; Y90.9 Presence of alcohol in blood, level not specified; F10.20 Alcohol dependence, uncomplicated; Z91.14 Patient's other noncompliance with medication regimen; Z79.899 Other long term (current) drug therapy; Z83.3 Family history of diabetes mellitus; Z82.49 Family history of ischemic heart disease and other diseases of the circulatory system
CPT/HCPCS: 36415; 71046; 80048; 80053; 80307; 80320; 81001; 82550; 82805; 82962; 83735; 84100; 84443; 84702; 85025; 85610; 93005; 96374; G0378; G0480; J1815; J2765; J3370; J3411; J3480; J7030; J7040; J7120